=== PATIENT | male | born 1950 | race Two or more races ===

== ENCOUNTER 2016-10-09 18:29 | Inpatient (IN) | payer MEDICAID ==
[~2016-10-09] VITALS: Ht 182.9 cm; Wt 70.3 kg
[2016-10-09 18:27] VITALS: BP 98/62
[~2016-10-09 18:29] MED LIST: NKM
[2016-10-09] MEDS ORDERED: Morphine Sulfate 4mg/ml Inj IVP ONE ×2 (18:30→21:15)
[2016-10-09 18:51] LABS: BASOPHILS % (AUTO) 0.9 % (0.0-2.0); EOSINOPHILS % (AUTO) 0.6 % (0.0-3.0); LYMPHOCYTES % (AUTO) 30.6 % (20.0-45.0); MEAN CORPUSCULAR HEMOGLOBIN 26.5 PG (27.0-31.0); MEAN CORPUSCULAR HGB CONC 33.3 G/DL (32.0-36.0); MEAN CORPUSCULAR VOLUME 80 FL (80-99); MEAN PLATELET VOLUME 4.5 FL (6.5-10.1); MONOCYTES % (AUTO) 6.5 % (1.0-10.0); NEUTROPHILS % (AUTO) 61.3 % (45.0-75.0); PLATELET COUNT 412 K/UL (150-450); RED BLOOD COUNT 5.61 M/UL (4.70-6.10); RED CELL DISTRIBUTION WIDTH 12.9 % (11.6-14.8)
[2016-10-09 19:05] LABS: TROPONIN I < 0.30 ng/mL (<=0.30)
[2016-10-09 19:06] LABS: ALANINE AMINOTRANSFERASE 10 U/L (3-41); ALBUMIN/GLOBULIN RATIO 1.2 (1.0-2.7); ANION GAP 21 (5-15); ASPARTATE AMINO TRANSFERASE 17 U/L (5-40); CALCIUM 8.7 mg/dL (8.6-10.2); CARBON DIOXIDE 21 mEQ/L (20-30); CHLORIDE 85 mEQ/L (98-107); CREATININE 0.8 mg/dL (0.7-1.2); GLOMERULAR FILTRATION RATE > 60 mL/min (>60); HEMOLYSIS 1; LIPASE 80 U/L (< 60); SODIUM 127 mEQ/L (135-145); TOTAL PROTEIN 6.9 g/dL (6.6-8.7)
[2016-10-09 19:30] VITALS: BP 121/74
[2016-10-09] MEDS ORDERED: ZANTAC150 MG ORAL (20:10)
[2016-10-09 20:30] VITALS: BP 121/80
[2016-10-09 21:30] VITALS: BP 137/85
--- NOTE | 2016-10-09 21:31 | General Progress Note ---
Progress Note Progress Note Chart reviewed, pt examined, consult dictated # [id number]. Impression: acute abdomen with perforated viscus. Plan: to OR for an exploratory laparotomy for repair of perforated viscus, possible colostomy. Regan Bhatia MD Oct 09, 2016 21:31
--- NOTE | 2016-10-09 21:47 | Emergency Room Report ---
History of Present Illness General Chief Complaint: Abdominal Pain Source: EMS Present Illness HPI 66-year-old male presents to ED for evaluation. Per EMS patient has been having abdominal pain and vomiting x4 days. Patient states pain is sharp, 10 out of 10, epigastric, nonradiating. No aggravating or relieving factors. Denies fevers or chills. Denies chest pain or shortness of breath. Denies diarrhea. Denies any other associated symptoms Allergies: Coded Allergies: No Known Allergies (Unverified , 10/09/16) Patient History Past Medical History: none Past Surgical History: none Pertinent Family History: none Social History: Denies: alcohol use, drug use, smoking Immunizations: UTD Reviewed Nursing Documentation: PMH: Agreed, PSxH: Agreed Review of Systems All Other Systems: negative except mentioned in HPI Physical Exam Vital Signs Date Time Temp Pulse Resp B/P Pulse Ox O2 Delivery O2 Flow Rate FiO2 10/09/16 18:13 97.2 91 16 98/62 97 Room Air Sp02 EP Interpretation: reviewed, normal General Appearance: alert, GCS 15, non-toxic, moderate distress Head: normocephalic, atraumatic Eyes: bilateral eye PERRL, bilateral eye normal inspection ENT: hearing grossly normal, normal pharynx, no angioedema, normal voice Neck: full range of motion, supple/symm/no masses Respiratory: chest non-tender, lungs clear, normal breath sounds, speaking full sentences Cardiovascular #1: regular rate, rhythm, no edema Cardiovascular #2: 2+ carotid (R), 2+ carotid (L), 2+ radial (R), 2+ radial (L) , 2+ dorsalis pedis (R), 2+ dorsalis pedis (L) Gastrointestinal: normal bowel sounds, soft, non-distended, no guarding, rebound, tenderness Rectal: deferred Genitourinary: normal inspection, no CVA tenderness Musculoskeletal: back normal, gait/station normal, normal range of motion, non- tender Neurologic: alert, oriented x3, responsive, motor strength/tone normal, sensory intact, speech normal Psychiatric: judgement/insight normal, memory normal, mood/affect normal, no suicidal/homicidal ideation Reflexes: 3+ bicep (R), 3+ bicep (L), 3+ tricep (R), 3+ tricep (L), 3+ knee (R) , 3+ knee (L) Skin: normal color, no rash, warm/dry, well hydrated Lymphatic: no adenopathy Procedures Critical Care Time Critical Care Time i. I feel this is a highly complex case requiring extensive working including EKG/Rhythm strip, Xray/CT/US, Blood/urine lab work, repeat exams while in ED, and administration of strong opiates/narcotics for pain control, admission to hospital or close patient follow up. Total time: 30 min bedside evaluation and treatment excludes procedures (EKG). Reason for critical care: Perforated viscus, intractable pain Possible complications: hypotension, hypertension, MN, shock, arrhythmias, metabolic acidosis, end organ damage, respiratory failure. Interventions: Labs, IV fluids, pain medications. CT. Antibiotics. Surgery consult Course: Patient brought in for abdominal pain with vomiting x4 days. Leukocytosis noted. Potassium 3.0. CT shows perforated viscus. Patient made n.p.o. Antibiotics given. Surgery will take to OR Consultations: nursing staff, EMS, family Performed by: Dr Cordoba Tolerated well condition = serious j. because of unstable vital signs this patient had a condition that could potentially threaten life or limb. I feel this is a critical patient who required my full attention while patient was considered critical. Total Critical Care Time excluding procedures was greater than 35 minutes Medical Decision Making Diagnostic Impression: Primary Impression: Perforated abdominal viscus ER Course Hospital Course 66-year-old male presents to ED with abdominal pain and vomiting x4 days Differential diagnoses include: BPH, cystitis, pyelonephritis, kidney stone Clinical course Patient placed on stretcher. outside medical sales representative. After initial history and physical I ordered labs, IV fluids, UA, pain medication and CT scan Labs - noted leukocytosis, Hb/Hct stable. Na 127, K 3.0. CT abdomen and pelvis - free air upper abdomen consistent with perforated viscus patient made n.p.o. Given IV fluids. Given antibiotics. Given potassium per IV Dr Bhatia consulted will take patient to OR. Case discussed with Dr. Grullon and he agreed to accept the patient to his service for further care and support I feel this is a highly complex case requiring extensive working including EKG/ Rhythm strip, Xray/CT/US, Blood/urine lab work, repeat exams while in ED, and administration of strong opiates/narcotics for pain control, admission to hospital or close patient follow up. Diagnosis - perforated abdominal viscus Patient taken to OR in serious condition Labs Test 10/09/16 18:30 White Blood Count 17.0 K/UL (4.8-10.8) Red Blood Count 5.61 M/UL (4.70-6.10) Hemoglobin 14.8 G/DL (14.2-18.0) Hematocrit 44.6 % (42.0-52.0) Mean Corpuscular Volume 80 FL (80-99) Mean Corpuscular Hemoglobin 26.5 PG (27.0-31.0) Mean Corpuscular Hemoglobin Concent 33.3 G/DL (32.0-36.0) Red Cell Distribution Width 12.9 % (11.6-14.8) Platelet Count 412 K/UL (150-450) Mean Platelet Volume 4.5 FL (6.5-10.1) Neutrophils (%) (Auto) 61.3 % (45.0-75.0) Lymphocytes (%) (Auto) 30.6 % (20.0-45.0) Monocytes (%) (Auto) 6.5 % (1.0-10.0) Eosinophils (%) (Auto) 0.6 % (0.0-3.0) Basophils (%) (Auto) 0.9 % (0.0-2.0) Sodium Level 127 mEQ/L (135-145) Potassium Level 3.0 mEQ/L (3.4-4.9) Chloride Level 85 mEQ/L (98-107) Carbon Dioxide Level 21 mEQ/L (20-30) Anion Gap 21 (5-15) Blood Urea Nitrogen 11 mg/dL (7-23) Creatinine 0.8 mg/dL (0.7-1.2) Estimat Glomerular Filtration Rate > 60 mL/min (>60) Glucose Level 167 mg/dL (74-106) Calcium Level 8.7 mg/dL (8.6-10.2) Total Bilirubin 0.4 mg/dL (0.0-1.2) Aspartate Amino Transf (AST/SGOT) 17 U/L (5-40) Alanine Aminotransferase (ALT/SGPT) 10 U/L (3-41) Alkaline Phosphatase 48 U/L (40-129) Total Creatine Kinase 196 U/L (38-174) Creatine Kinase MB 6.0 ng/mL (< 6.7) Creatine Kinase MB Relative Index 3.0 Troponin I < 0.30 ng/mL (<=0.30) Total Protein 6.9 g/dL (6.6-8.7) Albumin 3.8 g/dL (3.5-5.2) Globulin 3.1 g/dL Albumin/Globulin Ratio 1.2 (1.0-2.7) Lipase 80 U/L (< 60) EKG Diagnostic Results Rate: normal Rhythm: NSR ST Segments: no acute changes ASA given to the pt in ED: No Rhythm Strip Diag. Results EP Interpretation: yes Rhythm: NSR, no PVC's, no ectopy CT/MRI/US Diagnostic Results CT/MRI/US Diagnostic Results : Imaging Test Ordered: CT abdomen/pelvis Impression Free air and upper abdomen consistent with perforated viscus. Likely peptic ulcer disease. Dilated loops of bowel likely ileus Last Vital Signs Date Time Temp Pulse Resp B/P Pulse Ox O2 Delivery O2 Flow Rate FiO2 10/09/16 19:57 97.1 10/09/16 19:30 96 18 121/74 95 Room Air Status: improved Disposition: ADMITTED INPATIENT Condition: Serious Referrals: [facility],REFERRING (PCP) CESAR CORDOBA M.D. Oct 09, 2016 21:47
[2016-10-09] MEDS ORDERED: LR 1000ml 1,000 ML IVLG SCH (22:32)
--- NOTE | 2016-10-09 22:32 | Anethesia Preoperative Eval ---
Anesthesia Pre-op PMH/ROS General Date of Evaluation: Oct 09, 2016 Time of Evaluation: 23:31 Anesthesiologist: Kaushik ASA Score: ASA 3 - Emergency Mallampati Score Class I : Soft palate, uvula, fauces, pillars visible Class II: Soft palate, uvula, fauces visible Class III: Soft palate, base of uvula visible Class IV: Only hard plate visible Mallampati Classification: Class II Surgeon: Sriram Diagnosis: Perforated Viscus Surgical Procedure: Exploratory Laparotomy Anesthesia History: none Family History: no anesthesia problems Allergies: Coded Allergies: No Known Allergies (Unverified , 10/09/16) Medications: see eMAR Past Medical History Cardiovascular: Reports: HTN Gastrointestinal/Genitourinary: Reports: GERD, other - Perforated Viscus Anesthesia Pre-op Phys. Exam Physician Exam Last Vital Signs Date Time Temp Pulse Resp B/P Pulse Ox O2 Delivery O2 Flow Rate FiO2 10/09/16 21:44 97.1 10/09/16 21:30 71 21 137/85 98 Nasal Cannula 1.0 Constitutional: NAD Neurologic: CN 2-12 intact Cardiovascular: RRR Respiratory: CTA Gastrointestinal: S/NT/ND Airway Exam Mallampati Score: Class II MO: full ROM: limited Teeth: intact Anesthesia Pre-op A/P Labs Hematology Test 10/09/16 18:30 White Blood Count 17.0 K/UL (4.8-10.8) H Red Blood Count 5.61 M/UL (4.70-6.10) Hemoglobin 14.8 G/DL (14.2-18.0) Hematocrit 44.6 % (42.0-52.0) Mean Corpuscular Volume 80 FL (80-99) Mean Corpuscular Hemoglobin 26.5 PG (27.0-31.0) L Mean Corpuscular Hemoglobin Concent 33.3 G/DL (32.0-36.0) Red Cell Distribution Width 12.9 % (11.6-14.8) Platelet Count 412 K/UL (150-450) Mean Platelet Volume 4.5 FL (6.5-10.1) L Neutrophils (%) (Auto) 61.3 % (45.0-75.0) Lymphocytes (%) (Auto) 30.6 % (20.0-45.0) Monocytes (%) (Auto) 6.5 % (1.0-10.0) Eosinophils (%) (Auto) 0.6 % (0.0-3.0) Basophils (%) (Auto) 0.9 % (0.0-2.0) Chemistry Test 10/09/16 18:30 Sodium Level 127 mEQ/L (135-145) L Potassium Level 3.0 mEQ/L (3.4-4.9) L Chloride Level 85 mEQ/L (98-107) L Carbon Dioxide Level 21 mEQ/L (20-30) Anion Gap 21 (5-15) H Blood Urea Nitrogen 11 mg/dL (7-23) Creatinine 0.8 mg/dL (0.7-1.2) Estimat Glomerular Filtration Rate > 60 mL/min (>60) Glucose Level 167 mg/dL (74-106) H Calcium Level 8.7 mg/dL (8.6-10.2) Total Bilirubin 0.4 mg/dL (0.0-1.2) Aspartate Amino Transf (AST/SGOT) 17 U/L (5-40) Alanine Aminotransferase (ALT/SGPT) 10 U/L (3-41) Alkaline Phosphatase 48 U/L (40-129) Total Creatine Kinase 196 U/L (38-174) H Creatine Kinase MB 6.0 ng/mL (< 6.7) Creatine Kinase MB Relative Index 3.0 Troponin I < 0.30 ng/mL (<=0.30) Total Protein 6.9 g/dL (6.6-8.7) Albumin 3.8 g/dL (3.5-5.2) Globulin 3.1 g/dL Albumin/Globulin Ratio 1.2 (1.0-2.7) Lipase 80 U/L (< 60) H Risk Assessment & Plan Assessment: ASA 3E Plan: GA, BIS, Glidescope Status Change Before Surgery: No Pre-Antibiotics Dru Grams Ancef, 500 mg Flagyl IV Given Within 1 Hr of Incision: Yes Time Given: 23:41 Javier Faulkner MD Oct 09, 2016 22:32
--- NOTE | 2016-10-09 22:40 | Pre-Procedure Note/Attestation ---
Pre-Procedure Note/Attestation Complete Prior to Procedure Planned Procedure: not applicable Procedure Narrative: exploratory laparotomy for repair of perforated viscus, possible colostomy Indications for Procedure Pre-Operative Diagnosis: perforated viscus Attestation I attest that I discussed the nature of the procedure; its benefits; risks and complications; and alternatives (and the risks and benefits of such alternatives ), prior to the procedure, with the patient (or the patient's legal client account representative). I attest that, if there was a reasonable possibility of needing a blood transfusion, the patient (or the patient's legal client account representative) was given the [facility] standardized written summary, pursuant to the Chandu Hiram Blood Safety Act ([place] Health and Safety Code # 1645, as amended). I attest that I re-evaluated the patient just prior to the surgery and that there has been no change in the patient's H&P, except as documented below: none Regan Bhatia MD Oct 09, 2016 22:40
[2016-10-09] MEDS ORDERED: Meperidine 25mg/ml Inj IV PRN (22:45)
[2016-10-09] MEDS ORDERED: Norco 7.5mg/325mg tab ORAL PRN (22:45)
[2016-10-09] MEDS ORDERED: Metoclopramide 10mg/2ml Inj IVP PRN (22:45)
[2016-10-09] MEDS ORDERED: Ketorolac 30mg Inj IV PRN (22:45)
[2016-10-09] MEDS ORDERED: Midazolam 2mg/2ml Inj IVP PRN (22:45)
[2016-10-09] MEDS ORDERED: Atropine Inj 1mg/10ml Syr IV PRN (22:45)
[2016-10-09] MEDS ORDERED: DiphenhydrAMINE 50mg/ml Inj IVP PRN (22:45)
[2016-10-09] MEDS ORDERED: Norco 5mg/325mg tab ORAL PRN (22:45)
[2016-10-09] MEDS ORDERED: Labetalol 5mg/ml 20ml vial IV PRN (22:45)
[2016-10-09] MEDS ORDERED: Hydromorphone 0.5mg/0.5ml inj IVP PRN (22:45)
[2016-10-09] MEDS ORDERED: Oxycodone/Acetaminophen 5-325 ORAL PRN (22:45)
[2016-10-09] MEDS ORDERED: Ketorolac 60mg Inj IV PRN (22:45)
[2016-10-09] MEDS ORDERED: LORazepam Inj 2mg/ml 1ml IV PRN (22:45)
[2016-10-09] MEDS ORDERED: fentaNYL 100 mcg/2 mL IV PRN (22:45)
[2016-10-09] MEDS ORDERED: NS Irrig 1000ml ONE (23:30)
[2016-10-09] MEDS ORDERED: Sterile Water Irrig 1000ml IRRIG ONE (23:30)
[2016-10-09] MEDS ORDERED: Propofol 10mg/ml 20ml IV ONE (23:30)
[2016-10-09] MEDS ORDERED: Neostigmine 1mg/ml 10ml Inj ONE (23:30)
[2016-10-09] MEDS ORDERED: Zemuron 50mg/5ml Inj IV ONE (23:30)
[2016-10-09] MEDS ORDERED: Midazolam 2mg/2ml Inj ONE (23:30)
[2016-10-09] MEDS ORDERED: Glycopyrrolate 0.2mg/ml 1ml Vial ONE (23:30)
[2016-10-09] MEDS ORDERED: fentaNYL 100 mcg/2 mL IV ONE (23:30)
[2016-10-09] MEDS ORDERED: Lidocaine 1% MPF 10mg/ml 5ml ONE (23:30)
[2016-10-09] MEDS ORDERED: LR 1000ml ONE (23:30)
[2016-10-10] VITALS (12 sets, daily range): BP systolic 115–141; BP diastolic 71–87
[2016-10-10] MEDS ORDERED: NS Irrig 1000ml IRRIG ONE (00:01)
--- NOTE | 2016-10-10 00:19 | Immediate Post-Op Evaluation ---
Immediate Post-Op Evalulation Immediate Post-Op Evalulation Procedure: Laparotomy, Repair Perforated Stomach Date of Evaluation: Oct 10, 2016 Time of Evaluation: 00:49 IV Fluids: 500 LR Blood Products: 1000 Albumin Estimated Blood Loss: 50 Urinary Output: 0 Blood Pressure Systolic: 115 Blood Pressure Diastolic: 76 Pulse Rate: 65 Respiratory Rate: 16 O2 Sat by Pulse Oximetry: 99 Temperature (Fahrenheit): 97.7 Pain Score (1-10): 2 Nausea: No Vomiting: No Complications 0 Patient Status: awake, reacts, patent, extubated, none Hydration Status: adequate Dru Grams Ancef, 500 mg Flagyl IV Given Within 1 Hr of Incision: Yes Time Given: 23:41 Javier Faulkner MD Oct 10, 2016 00:19
--- NOTE | 2016-10-10 00:47 | History and Physical Report ---
DATE OF ADMISSION: 10/09/2016 REASON FOR ADMISSION: Abdominal pain, pneumoperitoneum. HISTORY OF PRESENT ILLNESS: This is a 66-year-old white male. He has had problems with gastritis and/or peptic ulcer disease for approximately four years. The patient was having problems with vomiting for the past four days. He developed the sudden onset of sharp generalized abdominal pain approximately 5:30 this evening. He denied any problems with hematemesis or rectal bleeding. He did notice some chills, but had no documented fever. PAST MEDICAL HISTORY: None. PREVIOUS SURGERIES: None. ALLERGIES: None known. MEDICATIONS: Include Zantac 150 mg daily. He was previously on Pepcid. SOCIAL HISTORY: Tobacco one pack per day since the age of 62. Alcohol, none. Occupation, the patient is currently unemployed. He was a salesman previously. FAMILY HISTORY: Positive for hypertension. REVIEW OF SYSTEMS: Essentially negative. There is no history of angina or asthma. He reports some problems with nocturia x1. PHYSICAL EXAMINATION: GENERAL: Reveals a thin white male, complaining of abdominal pain. VITAL SIGNS: Temperature 97.1, blood pressure 121/74, pulse 96, and respirations 18. HEENT: Normocephalic. Pupils are equal and reactive to light. There was no scleral icterus. NECK: Supple without adenopathy. LUNGS: Clear. HEART: Showed a regular rhythm without murmurs or gallops. ABDOMEN: Abdomen was flat. There is diffuse tenderness throughout with rigidity, consistent with a board-like abdomen. RECTAL: Rectal exam showed normal sphincter tone. There were no perirectal masses. The prostate is slightly enlarged. LABORATORY AND DIAGNOSTIC DATA: Laboratory Studies: CBC showed a white blood count of 17,000; hemoglobin 14.8 g%, hematocrit 44.6%, and platelet count 412,000. Clinical chemistry showed a sodium of 127, potassium 3.0, chloride 85, bicarbonate 21, BUN 11, creatinine 0.8, and glucose 167. Total bilirubin 0.4, SGOT 10, SGPT 17, and alkaline phosphatase normal at 48. Lipase was elevated to 80. A CT scan of the abdomen and pelvis revealed extensive free air mostly in the upper abdomen. There was no obvious focal point of the perforation. IMPRESSION: Acute abdomen, perforated viscus. PLAN: We will begin an infusion with intravenous potassium to replenish his hypokalemia. We will check coags in preparation for a laparotomy this evening. The patient and significant other were explained the nature of the problem and told that if this is a perforated ulcer, he will need to undergo a repair with a patch. He was also told that if the problem represents a colonic perforation, he may require a partial colectomy and temporary colostomy. Regan Bhatia M.D. DR: ALDAIR JOB#: [id number] CC: RACHEL
[2016-10-10] MEDS ORDERED: Hydromorphone 0.5mg/0.5ml inj IVP PRN (01:00)
--- NOTE | 2016-10-10 01:06 | Brief Operative Note ---
Immediate Post Operative Note Operative Note Pre-op Diagnosis: perforated viscus Procedure: exploratory laparotomy, Cruz closure of perforated pyloric channel ulcer Post-op Diagnosis: perforated pyloric ulcer Surgeon: Angelina Bhatia MD Channel Rebuilder: LADARIUS Bedolla MD Anesthesiologist: Sonny Faulkner MD Anesthesia: general Specimen: none Complications: none Condition: stable Estimated Blood Loss: minimal Drains: none Packing: none Implant(s) used?: No Regan Bhatia MD Oct 10, 2016 01:06
[2016-10-10] MEDS ORDERED: Ketorolac 60mg Inj ONE (01:15)
[2016-10-10] MEDS ORDERED: Pantoprazole 80 MG in NS 250 ML IV ONE (02:00)
[2016-10-10] MEDS ORDERED: Ketorolac 30mg Inj IV ONE ×2 (02:00)
[2016-10-10] MEDS ORDERED: Pantoprazole Inj ONE (02:24)
[2016-10-10] MEDS: HYDROmorphone 1mg/ml Carpuject IVP PRN (02:54)
[2016-10-10] MEDS: D5 1/2NS w/KCl 20mEq 1,000 ML IV SCH ×4 (03:10→23:00)
--- NOTE | 2016-10-10 03:28 | Operative Note - Dictated ---
DATE OF OPERATION: 10/09/2016 PREOPERATIVE DIAGNOSIS: Perforated viscus. POSTOPERATIVE DIAGNOSES: 1. Perforated viscus. 2. Perforated pyloric channel ulcer. PROCEDURE: 1. Exploratory laparotomy. 2. Cruz closure of perforated ulcer. SURGEON: Regan Bhatia M.D. PRODUCTION EXPERT: Thomas Bedolla M.D. ANESTHESIA: General endotracheal, Dr. Javier Faulkner. INDICATIONS FOR SURGERY: This is a 66-year-old white male with known history of gastritis and peptic ulcer disease, presented to the hospital with the sudden onset of upper abdominal pain approximately six to seven hours prior to surgery. The patient was found to have a leukocytosis to 17,000. A CT scan of the abdomen revealed free air. Exam reveals a rigid abdomen. He was advised to undergo an exploratory laparotomy for repair of his perforated viscus. He was also informed that if the perforation was in the colon, he may require a partial colectomy and colostomy. OPERATIVE FINDINGS: Exploration of the abdominal cavity revealed some murky fluid. Cultures were taken. The patient was found to have a 5 mm perforated ulcer on the anterior aspect of the pyloric channel. The proximal stomach appeared normal as did the duodenum. There were no abnormalities noted in the gallbladder or liver. The descending and sigmoid colon had extensive diverticulosis. There were no masses to suggest a colon tumor or acute diverticulitis. OPERATIVE TECHNIQUE: With the patient in the supine position and after induction of adequate general endotracheal anesthesia, the abdomen was prepped and draped in the sterile fashion. A time-out was called. A midline incision was made in the epigastric region. The subcutaneous tissue was divided by sharp dissection with a scalpel. Several bleeding points were cauterized. The rectus fascia was incised at the midline. The peritoneum was elevated and incised entering the abdominal cavity. The falciform ligament was divided between two clamps. The adjacent vessels to the round ligament were ligated with 3-0 silk. Cultures were taken of the murky fluid in the upper abdomen. Inspection of the area revealed the site of perforation. The abdomen was copiously irrigated with normal saline. A Cruz closure was performed by placing interrupted 2-0 silk sutures in transverse fashion, proximal and distal perforation. A portion of the omentum was brought underneath the sutures and over the area of perforation. The sutures were carefully tightened completing the repair. The abdomen was further irrigated with normal saline. There was no evidence of hemorrhage. The rectus fascia was closed with a running #1 PDS suture. The subcutaneous tissue was irrigated. The skin was closed with stainless steel bijal. Sterile dressings were applied. The patient tolerated the procedure well and was returned to the recovery room in stable condition. The estimated blood loss was 20 mL. Regan Bhatia M.D. DR: ALDAIR JOB#: [id number] CC: RACHEL
[2016-10-10] MEDS ORDERED: metroNIDAZOLE 500mg 100 ML IVPB SCH (06:00)
[2016-10-10] MEDS ORDERED: ceFAZolin sod 2 GM in D5W 100 ML IV SCH ×2 (06:00→14:00)
[2016-10-10] MEDS: Heparin 5000 units/ml inj SUBQ SCH ×2 (08:46→21:19)
--- NOTE | 2016-10-10 09:47 | Diagnostic Imaging Report ---
Indication: Abdominal pain Technique: Continuous helical transaxial imaging of the abdomen and pelvis was obtained from the lung bases to the pubic symphysis during intravenous contrast administration. Coronal 2-D reformats were also obtained. Study obtained in a Siemens sensation [address] Total Dose length Product (DLP): [address] Dose Index Volume (CTDIvol): 14 mGy Comparison: None Findings: There is moderate degree of free intraperitoneal air and fluid demonstrated consistent with perforation of bowel or stomach. The source of the perforation is not known. Most of the air appears to be in the upper abdomen. Should consider perforated ulcer. Distended stomach and multiple loops of small bowel with wall enhancement noted. The right hemicolon also appears abnormal with some thickening of the wall. There is mesenteric stranding demonstrated. The findings could be on the basis of the perforation a with secondary inflammation and ileus. Arterial vascular consultations are noted. Liver attenuation is normal. Gallbladder, spleen, pancreas appear unremarkable. Renal cysts are noted within the right kidney. Unusual collection of contrast within one of the small bowel loops in the lower abdomen (image 64, series 3). Followup for this is suggested with a KUB. This is probably some segregated or flocculated barium or possibly bismuth. Few diverticula noted in the colon. The appendix is not seen. Impression: Free intraperitoneal air indicative of colonic or enteric perforation. Source of the perforation not identified but strongly consider perforated ulcer. Mesenteric soft tissue stranding and enhancement of the platt and mild dilatation of multiple small bowel loops and colon probably associated with the peritoneal irritation and inflammation from perforation. Posterior basilar atelectasis Small hiatal hernia Right renal cysts Atherosclerotic vascular disease Mild diverticulosis of the colon Critical value communication. Findings were discussed via telephone with Dr. Cordoba at 20:00, 10/09/[address] scanner at [facility] is accredited by the [employer] and the scans are performed using protocols designed to limit radiation exposure to as low as reasonably achievable to attain images of sufficient resolution adequate for diagnostic evaluation.
--- NOTE | 2016-10-10 10:58 | General Surgery Progress Note ---
General Surgery-Progress Note Subjective Day of Surgery: post op day #1 Procedure Performed Exploratory laparotomy with Cruz Patch repair of perforated prepyloric ulcer. Symptoms: improved Additional Comments patient seen and examined at bedside. no acute events. doing well. pain improved. no n/v/f/c. ngt functional. states he feels much better today after surgery. no flatus or BM Objective Last 24 Hour Vital Signs Date Time Temp Pulse Resp B/P Pulse Ox O2 Delivery O2 Flow Rate FiO2 10/10/16 08:00 97.9 68 19 116/75 99 Nasal Cannula 2.0 10/10/16 04:00 97.6 66 18 138/85 98 Nasal Cannula 2.0 10/10/16 01:30 98.0 60 14 141/87 98 Nasal Cannula 3.0 10/10/16 01:15 60 18 132/79 98 Nasal Cannula 3.0 10/10/16 01:00 60 17 120/81 98 Nasal Cannula 3.0 10/10/16 00:48 66 15 129/74 95 Nasal Cannula 3.0 10/10/16 00:43 61 15 121/80 99 Simple Mask 6.0 10/10/16 00:41 65 16 99 10/10/16 00:38 97.7 65 17 115/76 98 Simple Mask 6.0 10/09/16 22:55 97.1 71 21 137/85 98 Nasal Cannula 1.0 10/09/16 21:44 97.1 10/09/16 21:30 71 21 137/85 98 Nasal Cannula 1.0 10/09/16 20:30 89 15 121/80 95 Nasal Cannula 1.0 10/09/16 19:57 97.1 10/09/16 19:30 96 18 121/74 95 Room Air 10/09/16 18:27 16 98/62 97 Room Air 10/09/16 18:13 97.2 91 16 98/62 97 Room Air I&O Intake and Output 10/09/16 10/10/16 18:59 06:59 Intake Total 3200 ml Output Total 500 ml Balance 2700 ml Intake IV Total 3200 ml Output Urine Total 450 ml Estimated Blood Loss 50 ml Dressing: dry Wound: clean Drains: none Cardiovascular: RSR Respiratory: clear Abdomen: soft, non-tender, tenderness - incisional Laboratory Tests Test 10/09/16 18:30 White Blood Count 17.0 K/UL (4.8-10.8) H Red Blood Count 5.61 M/UL (4.70-6.10) Hemoglobin 14.8 G/DL (14.2-18.0) Hematocrit 44.6 % (42.0-52.0) Mean Corpuscular Volume 80 FL (80-99) Mean Corpuscular Hemoglobin 26.5 PG (27.0-31.0) L Mean Corpuscular Hemoglobin Concent 33.3 G/DL (32.0-36.0) Red Cell Distribution Width 12.9 % (11.6-14.8) Platelet Count 412 K/UL (150-450) Mean Platelet Volume 4.5 FL (6.5-10.1) L Neutrophils (%) (Auto) 61.3 % (45.0-75.0) Lymphocytes (%) (Auto) 30.6 % (20.0-45.0) Monocytes (%) (Auto) 6.5 % (1.0-10.0) Eosinophils (%) (Auto) 0.6 % (0.0-3.0) Basophils (%) (Auto) 0.9 % (0.0-2.0) Sodium Level 127 mEQ/L (135-145) L Potassium Level 3.0 mEQ/L (3.4-4.9) L Chloride Level 85 mEQ/L (98-107) L Carbon Dioxide Level 21 mEQ/L (20-30) Anion Gap 21 (5-15) H Blood Urea Nitrogen 11 mg/dL (7-23) Creatinine 0.8 mg/dL (0.7-1.2) Estimat Glomerular Filtration Rate > 60 mL/min (>60) Glucose Level 167 mg/dL (74-106) H Calcium Level 8.7 mg/dL (8.6-10.2) Total Bilirubin 0.4 mg/dL (0.0-1.2) Aspartate Amino Transf (AST/SGOT) 17 U/L (5-40) Alanine Aminotransferase (ALT/SGPT) 10 U/L (3-41) Alkaline Phosphatase 48 U/L (40-129) Total Creatine Kinase 196 U/L (38-174) H Creatine Kinase MB 6.0 ng/mL (< 6.7) Creatine Kinase MB Relative Index 3.0 Troponin I < 0.30 ng/mL (<=0.30) Total Protein 6.9 g/dL (6.6-8.7) Albumin 3.8 g/dL (3.5-5.2) Globulin 3.1 g/dL Albumin/Globulin Ratio 1.2 (1.0-2.7) Lipase 80 U/L (< 60) H Assessment Post-op Diagnosis 66 year old male POD #1 s/p Cruz patch of perforated prepyloric ulcer. Additional Comments Afebrile, HD stable, recovering well. Plan Problems: (1) Perforated chronic peptic ulcer Assessment & Plan: Continue current care and management NPO with IV fluids NG tube to low intermittent suction Continue IV Abx (perforated viscus with contamination) Protonix drip Heparin Ambulate and OOB Pending labs Robb to say in today to monitor urine output; likely d/c robb tomorrow Rx as written. Thomas Bedolla MD Oct 10, 2016 10:58
[2016-10-10] MEDS ORDERED: Milk of Magnesia 30ml Ud ORAL ONE (11:15)
[2016-10-10] MEDS ORDERED: Levofloxacin 500mg tab ORAL SCH (11:30)
[2016-10-10] MEDS: Pantoprazole Inj IVP SCH ×2 (11:53→21:20)
[2016-10-10 12:28] LABS: MEAN CORPUSCULAR HEMOGLOBIN 26.6 PG (27.0-31.0); MEAN CORPUSCULAR HGB CONC 33.4 G/DL (32.0-36.0); MEAN CORPUSCULAR VOLUME 80 FL (80-99); PLATELET COUNT 314 K/UL (150-450); RED BLOOD COUNT 4.75 M/UL (4.70-6.10)
[2016-10-10 12:36] LABS: ANION GAP 14 (5-15); CALCIUM 7.9 mg/dL (8.6-10.2); CARBON DIOXIDE 24 mEQ/L (20-30); CHLORIDE 93 mEQ/L (98-107); CREATININE 0.8 mg/dL (0.7-1.2); GLOMERULAR FILTRATION RATE > 60 mL/min (>60); HEMOLYSIS 8; POTASSIUM 4.2 mEQ/L (3.4-4.9); SODIUM 131 mEQ/L (135-145); WHITE BLOOD COUNT 24.6 K/UL (4.8-10.8)
[2016-10-10 13:02] LABS: BAND NEUTROPHILS % (MANUAL) 0 % (0-8); BASOPHILS % (MANUAL) 0 % (0-2); EOSINOPHILS % (MANUAL) 1 % (0-3); LYMPHOCYTES % (MANUAL) 5 % (20-45); NEUTROPHILS % (MANUAL) 92 % (45-75); PLATELET ESTIMATE ADEQUATE; PLATELET MORPHOLOGY NORMAL; TOTAL CELLS COUNTED 100
[2016-10-10] MEDS: Piperacillin/Tazobactam 3.375 GM in D5W 110 ML IVPB SCH ×2 (14:30→21:21)
--- NOTE | 2016-10-10 15:51 | Consultation ---
Consult Note Assessment/Plan DICT # [id number] TIFFANI THORPE M.D. Oct 10, 2016 15:51
[2016-10-10] MEDS ORDERED: D5W 110ml ONE (16:24)
--- NOTE | 2016-10-10 23:08 | Consultation ---
DATE OF CONSULTATION: 10/10/2016 CONSULTING PHYSICIAN: Kristian Carney M.D. ATTENDING PHYSICIAN: Regan Bhatia M.D. REFERRING PHYSICIAN: Please note this is in consultation in coverage for Dr. Bonifacio Grullon. HISTORY OF PRESENT ILLNESS: The patient is a 66-year-old male without any known past medical history, who presented to the ER with several days of sharp generalized abdominal pain and vomiting. He states that he has been having pain for many years, but it was worse over the past few days. He also had generalized feeling of not being well. No fever or chills. No headache or dizziness. No diarrhea or constipation. He had a bowel movement a day prior to this. No hematemesis, hemoptysis, melena, or bright red blood per rectum. No dysuria, urgency, hesitancy, or frequency. In the ER, he had leukocytosis and CT was done which revealed free air in the upper abdomen. The patient was taken to the OR for repair of perforated viscus. He is now postop day #1, status post exploratory laparotomy with Cruz patch repair of perforated pre-pyloric ulcer. PAST MEDICAL HISTORY: None. PAST SURGICAL HISTORY: Exploratory laparotomy for repair of a perforated pyloric ulcer on 10/10/2016. ALLERGIES: No known drug allergies. MEDICATIONS: Prior to admission, medications none. SOCIAL HISTORY: He smokes less than a pack per day. No drug or alcohol use. He is and has kids. FAMILY HISTORY: Noncontributory. REVIEW OF SYSTEMS: Negative other than history of present illness. PHYSICAL EXAMINATION: VITAL SIGNS: Temperature 98, pulse 60, blood pressure 141/87, respiratory rate 14, and saturating 98% on two liters. GENERAL: Well-developed and well-nourished male in no acute distress. Awake, alert, and oriented x3. HEENT: Normocephalic and atraumatic. Oropharynx is clear with moist mucous membranes. NECK: Supple without lymphadenopathy. No JVD. CHEST: Clear to auscultation bilaterally. HEART: Regular rate and rhythm. ABDOMEN: Soft. Diffusely tender around the wound. The wound is dressed. No bowel sounds. EXTREMITIES: No cyanosis, clubbing, or edema. ANCILLARY DATA: White count 17 at admission and 24.6 today, hemoglobin 14, and platelet count 412,000. Chemistry, sodium 131, potassium 4.2, chloride 92, bicarbonate 24, BUN 9, creatinine 0.8, glucose 132, and calcium 7.9. LFTs reviewed. CK 196. Troponin less than 0.03. Lipase 80. Total protein 6.9, albumin 2.8, globulin 3.1. Cultures from the OR are pending. Imaging, CT of abdomen and pelvis shows free intraperitoneal air indicative of colonic perforation, source of perforation not identified, mesenteric soft tissue stranding and enhancement of the platt, moderate aeration of multiple small bowel loops, posterior basilar atelectasis, small hiatal hernia, right renal cyst, atherosclerotic vascular disease, and mild diverticulosis of the colon. ASSESSMENT: The patient is a 66-year-old male presenting with acute abdomen. He is now postop day #1, status post repair of perforated viscus. PROBLEM LIST: 1. Acute abdomen, status post exploratory laparotomy with Cruz patch repair of perforated prepyloric ulcer. 2. Tobacco use. 3. Postoperative leukocytosis. TREATMENT PLAN: 1. Postoperative care. 2. Pain control, supportive care. 3. IV fluid hydration. 4. Broad-spectrum antibiotic therapy with Zosyn. 5. Follow up cultures. 6. Incentive spirometer. 7. Advance diet when okay with surgery. 8. Follow up surgery recommendations. 9. DVT prophylaxis, heparin subcutaneous. 10. Mobilize as tolerated and out of bed as tolerated. 11. Continue IV PPI. 12. NG tube per surgery. 13. Drain per surgery. 14. Keep Hickman in overnight. 15. We will likely discharge tomorrow. Kristian Carney M.D. DR: Laura JOB#: [id number] CC:
[2016-10-11] VITALS: BP 121/80
[2016-10-11 04:00] VITALS: BP 135/84
[2016-10-11] MEDS: Piperacillin/Tazobactam 3.375 GM in D5W 110 ML IVPB SCH ×3 (04:56→22:13)
[2016-10-11] MEDS: D5 1/2NS w/KCl 20mEq 1,000 ML IV SCH ×3 (05:45→21:10)
[2016-10-11 08:00] VITALS: BP 138/85
[2016-10-11] MEDS: Pantoprazole Inj IVP SCH ×2 (08:14→21:11)
[2016-10-11] MEDS: Heparin 5000 units/ml inj SUBQ SCH ×2 (08:16→21:20)
--- NOTE | 2016-10-11 08:31 | General Surgery Progress Note ---
General Surgery-Progress Note Subjective Day of Surgery: po day 1 Reason for Consult s/p ex lap Cruz patch repair of perforated pyloric channel ulcer Symptoms: pain same Additional Comments no flatus or bm Objective Last 24 Hour Vital Signs Date Time Temp Pulse Resp B/P Pulse Ox O2 Delivery O2 Flow Rate FiO2 10/11/16 04:00 98.2 76 19 135/84 97 Nasal Cannula 2.0 10/11/16 00:00 98.4 78 19 121/80 95 Nasal Cannula 2.0 10/10/16 20:01 97.0 70 14 132/74 97 Nasal Cannula 2.0 10/10/16 16:00 96.8 72 15 120/71 94 Nasal Cannula 2.0 10/10/16 12:00 97.5 70 20 119/76 98 Nasal Cannula 2.0 I&O Intake and Output 10/10/16 10/11/16 19:00 07:00 Intake Total 900 ml 900 ml Output Total 980 ml 920 ml Balance -80 ml -20 ml Intake Oral 0 ml IV Total 900 ml 900 ml Output Urine Total 700 ml 750 ml Other 280 ml 170 ml Dressing: dry Wound: clean Drains: none Cardiovascular: RSR Respiratory: clear Abdomen: tenderness, absent bowel sounds Extremities: no edema, no tenderness, no cyanosis Laboratory Tests Test 10/10/16 11:20 White Blood Count 24.6 K/UL (4.8-10.8) *H Red Blood Count 4.75 M/UL (4.70-6.10) Hemoglobin 12.6 G/DL (14.2-18.0) L Hematocrit 37.9 % (42.0-52.0) L Mean Corpuscular Volume 80 FL (80-99) Mean Corpuscular Hemoglobin 26.6 PG (27.0-31.0) L Mean Corpuscular Hemoglobin Concent 33.4 G/DL (32.0-36.0) Red Cell Distribution Width 13.0 % (11.6-14.8) Platelet Count 314 K/UL (150-450) Mean Platelet Volume 5.0 FL (6.5-10.1) L Neutrophils (%) (Auto) % (45.0-75.0) Lymphocytes (%) (Auto) % (20.0-45.0) Monocytes (%) (Auto) % (1.0-10.0) Eosinophils (%) (Auto) % (0.0-3.0) Basophils (%) (Auto) % (0.0-2.0) Differential Total Cells Counted 100 Neutrophils % (Manual) 92 % (45-75) H Lymphocytes % (Manual) 5 % (20-45) L Monocytes % (Manual) 2 % (1-10) Eosinophils % (Manual) 1 % (0-3) Basophils % (Manual) 0 % (0-2) Band Neutrophils 0 % (0-8) Platelet Estimate Adequate Platelet Morphology Normal Red Blood Cell Morphology Normal Sodium Level 131 mEQ/L (135-145) L Potassium Level 4.2 mEQ/L (3.4-4.9) Chloride Level 93 mEQ/L (98-107) L Carbon Dioxide Level 24 mEQ/L (20-30) Anion Gap 14 (5-15) Blood Urea Nitrogen 9 mg/dL (7-23) Creatinine 0.8 mg/dL (0.7-1.2) Estimat Glomerular Filtration Rate > 60 mL/min (>60) Glucose Level 132 mg/dL (74-106) H Calcium Level 7.9 mg/dL (8.6-10.2) L Assessment Post-op Diagnosis stable post op course.\ long discussion with pt re pathophysiology, surgical findings. post-op care. Additional Comments will jamshid ashley. recheck labs am SOTERO MEDINA Oct 11, 2016 08:31
[2016-10-11 09:43] LABS: MEAN CORPUSCULAR HEMOGLOBIN 26.6 PG (27.0-31.0); MEAN CORPUSCULAR HGB CONC 33.5 G/DL (32.0-36.0); MEAN CORPUSCULAR VOLUME 79 FL (80-99); MEAN PLATELET VOLUME 5.3 FL (6.5-10.1); PLATELET COUNT 288 K/UL (150-450); RED BLOOD COUNT 4.52 M/UL (4.70-6.10); RED CELL DISTRIBUTION WIDTH 12.9 % (11.6-14.8); WHITE BLOOD COUNT 20.7 K/UL (4.8-10.8)
[2016-10-11 09:55] LABS: ANION GAP 14 (5-15); CALCIUM 7.9 mg/dL (8.6-10.2); CARBON DIOXIDE 22 mEQ/L (20-30); CHLORIDE 91 mEQ/L (98-107); CREATININE 0.6 mg/dL (0.7-1.2); GLOMERULAR FILTRATION RATE > 60 mL/min (>60); HEMOLYSIS 1; POTASSIUM 3.8 mEQ/L (3.4-4.9); SODIUM 127 mEQ/L (135-145)
[2016-10-11 10:25] LABS: BAND NEUTROPHILS % (MANUAL) 0 % (0-8); BASOPHILS % (MANUAL) 0 % (0-2); EOSINOPHILS % (MANUAL) 0 % (0-3); LYMPHOCYTES % (MANUAL) 3 % (20-45); MICROCYTES 1+; NEUTROPHILS % (MANUAL) 94 % (45-75); PLATELET ESTIMATE ADEQUATE; PLATELET MORPHOLOGY NORMAL; TOTAL CELLS COUNTED 100
[2016-10-11 12:00] VITALS: BP 130/68
[2016-10-11 16:00] VITALS: BP 132/86
--- NOTE | 2016-10-11 18:22 | Pulmonology Progress Note ---
Assessment/Plan Assessment/Plan 1. Acute abdomen, status post exploratory laparotomy with Cruz patch repair of perforated prepyloric ulcer. 2. Tobacco use. 3. Postoperative leukocytosis. TREATMENT PLAN: 1. Postoperative care. 2. Pain control, supportive care. 3. IV fluid hydration. 4. Broad-spectrum antibiotic therapy with Zosyn. 5. Follow up cultures. 6. Incentive spirometer. 7. Advance diet when okay with surgery. 8. Follow up surgery recommendations. 9. DVT prophylaxis, heparin subcutaneous. 10. Mobilize as tolerated and out of bed as tolerated. Subjective Interval Events: Improved; seen by surgery earlier today Constitutional: Reports: no symptoms HEENT: Repors: no symptoms Respiratory: Reports: no symptoms Cardiovascular: Reports: no symptoms Gastrointestinal/Abdominal: Reports: nausea Genitourinary: Reports: no symptoms Neurologic: Reports: no symptoms Allergies: Coded Allergies: No Known Allergies (Unverified , 10/09/16) Objective Last 24 Hour Vital Signs Date Time Temp Pulse Resp B/P Pulse Ox O2 Delivery O2 Flow Rate FiO2 10/11/16 16:00 98.2 81 20 132/86 94 Nasal Cannula 2.0 10/11/16 12:00 98.2 89 20 130/68 94 Nasal Cannula 2.0 10/11/16 08:43 98.2 10/11/16 08:00 98.2 84 20 138/85 95 Room Air 10/11/16 04:00 98.2 76 19 135/84 97 Nasal Cannula 2.0 10/11/16 00:00 98.4 78 19 121/80 95 Nasal Cannula 2.0 10/10/16 20:01 97.0 70 14 132/74 97 Nasal Cannula 2.0 Intake and Output 10/10/16 10/11/16 19:00 07:00 Intake Total 900 ml 1050 ml Output Total 980 ml 920 ml Balance -80 ml 130 ml Intake Oral 0 ml IV Total 900 ml 1050 ml Output Urine Total 700 ml 750 ml Other 280 ml 170 ml General Appearance: WD/WN HEENT: normocephalic Respiratory/Chest: chest wall non-tender, lungs clear Cardiovascular: normal peripheral pulses, normal rate Abdomen: hypoactive bowel sounds Extremities: no cyanosis Microbiology Date/Time Source Procedure Growth Status 10/10/16 00:40 Abdomen Gram Stain - Final Resulted 10/10/16 00:40 Abdomen Aerobic Culture - Preliminary NO GROWTH AFTER 24 HOURS Resulted 10/10/16 00:40 Abdomen Anaerobic Culture Pending Resulted Laboratory Tests 10/11/16 09:30: White Blood Count 20.7H, Red Blood Count 4.52L, Hemoglobin 12.0L, Hematocrit 35.9L, Mean Corpuscular Volume 79L, Mean Corpuscular Hemoglobin 26.6L, Mean Corpuscular Hemoglobin Concent 33.5, Red Cell Distribution Width 12.9, Platelet Count 288, Mean Platelet Volume 5.3L, Neutrophils (%) (Auto) , Lymphocytes (%) ( Auto) , Monocytes (%) (Auto) , Eosinophils (%) (Auto) , Basophils (%) (Auto) , Differential Total Cells Counted 100, Neutrophils % (Manual) 94H, Lymphocytes % (Manual) 3L, Monocytes % (Manual) 3, Eosinophils % (Manual) 0, Basophils % ( Manual) 0, Band Neutrophils 0, Platelet Estimate Adequate, Platelet Morphology Normal, Red Blood Cell Morphology Normal, Microcytosis 1+, Sodium Level 127L, Potassium Level 3.8, Chloride Level 91L, Carbon Dioxide Level 22, Anion Gap 14, Blood Urea Nitrogen 10, Creatinine 0.6L, Estimat Glomerular Filtration Rate > 60 , Glucose Level 130H, Calcium Level 7.9L Current Medications Medications (Trade) Dose Ordered Sig/Marco Route PRN Reason Start Time Stop Time Status Last Admin Dose Admin Dextrose/ Electrolytes (D5 0.45%NS W/ KCl 20mEq) 1,000 ml @ 150 mls/hr Q6H40M IV 10/10/16 03:00 11/09/16 02:59 10/11/16 05:45 Heparin Sodium (Porcine) (Heparin 5000 units/ml) 5,000 units EVERY 12 HOURS SUBQ 10/10/16 09:00 11/09/16 08:59 10/11/16 08:16 Hydromorphone HCl (Dilaudid) 0.5 mg Q3H PRN IVP Pain Score 1-3 10/10/16 01:00 10/17/16 00:59 Hydromorphone HCl (Dilaudid) 1 mg Q3H PRN IVP pain score 4-6 10/10/16 01:00 10/17/16 00:59 10/10/16 02:54 Hydromorphone HCl (Dilaudid) 2 mg Q3H PRN IVP pain score 7-10 10/10/16 01:00 10/17/16 00:59 10/11/16 16:11 Ondansetron HCl (Zofran) 4 mg Q6H PRN IVP Nausea & Vomiting 10/10/16 01:00 11/09/16 00:59 Pantoprazole 40 mg 40 mg EVERY 12 HOURS IVP 10/10/16 11:45 11/09/16 11:44 10/11/16 08:14 Piperacillin Sod/ Tazobactam Sod/ Dextrose (Zosyn/D5W 100ml) 110 ml @ 27.5 mls/hr EVERY 8 HOURS IVPB 10/10/16 14:30 10/15/16 14:29 10/11/16 14:15 Bonifacio Grullon MD Oct 11, 2016 18:22
[2016-10-11 20:00] VITALS: BP 135/89
[2016-10-12] VITALS: BP 120/80
[2016-10-12] MEDS: D5 1/2NS w/KCl 20mEq 1,000 ML IV SCH ×4 (01:40→21:27)
[2016-10-12 04:00] VITALS: BP 140/98
[2016-10-12] MEDS: Piperacillin/Tazobactam 3.375 GM in D5W 110 ML IVPB SCH ×3 (05:43→21:27)
[2016-10-12 07:38] LABS: MEAN CORPUSCULAR HEMOGLOBIN 26.7 PG (27.0-31.0); MEAN CORPUSCULAR HGB CONC 33.3 G/DL (32.0-36.0); MEAN CORPUSCULAR VOLUME 80 FL (80-99); MEAN PLATELET VOLUME 5.2 FL (6.5-10.1); PLATELET COUNT 278 K/UL (150-450); RED BLOOD COUNT 4.41 M/UL (4.70-6.10); RED CELL DISTRIBUTION WIDTH 13.5 % (11.6-14.8); WHITE BLOOD COUNT 17.4 K/UL (4.8-10.8)
[2016-10-12 08:00] VITALS: BP 136/88
[2016-10-12 08:05] LABS: ALANINE AMINOTRANSFERASE 7 U/L (3-41); ANION GAP 13 (5-15); ASPARTATE AMINO TRANSFERASE 10 U/L (5-40); CALCIUM 8.4 mg/dL (8.6-10.2); CARBON DIOXIDE 25 mEQ/L (20-30); CHLORIDE 94 mEQ/L (98-107); CREATININE 0.6 mg/dL (0.7-1.2); GLOMERULAR FILTRATION RATE > 60 mL/min (>60); HEMOLYSIS 2; POTASSIUM 4.5 mEQ/L (3.4-4.9); SODIUM 132 mEQ/L (135-145); TOTAL PROTEIN 5.9 g/dL (6.6-8.7)
--- NOTE | 2016-10-12 09:02 | Pulmonology Progress Note ---
Assessment/Plan Assessment/Plan 1. Acute abdomen, status post exploratory laparotomy with Cruz patch repair of perforated prepyloric ulcer. 2. Tobacco use. 3. Postoperative leukocytosis. TREATMENT PLAN: 1. Postoperative care. 2. Pain control, supportive care. 3. IV fluid hydration. 4. Broad-spectrum antibiotic therapy with Zosyn. 5. Follow up cultures. 6. Incentive spirometer. 7. Advance diet when okay with surgery. 8. Follow up surgery recommendations. 9. DVT prophylaxis, heparin subcutaneous. 10. Mobilize as tolerated and out of bed as tolerated. Subjective Interval Events: Doing better; NGT in place Constitutional: Reports: no symptoms HEENT: Repors: no symptoms Respiratory: Reports: no symptoms Cardiovascular: Reports: no symptoms Gastrointestinal/Abdominal: Reports: no symptoms Genitourinary: Reports: no symptoms Allergies: Coded Allergies: No Known Allergies (Unverified , 10/09/16) Objective Last 24 Hour Vital Signs Date Time Temp Pulse Resp B/P Pulse Ox O2 Delivery O2 Flow Rate FiO2 10/12/16 04:00 98.1 82 19 140/98 93 Room Air 10/12/16 00:00 98.6 67 19 120/80 90 Room Air 10/11/16 20:00 98.6 76 20 135/89 95 Nasal Cannula 2.0 10/11/16 16:41 98.2 10/11/16 16:00 98.2 81 20 132/86 94 Nasal Cannula 2.0 10/11/16 12:00 98.2 89 20 130/68 94 Nasal Cannula 2.0 Intake and Output 10/11/16 10/12/16 19:00 07:00 Intake Total 900 ml 437.5 ml Output Total 710 ml Balance 190 ml 437.5 ml IV Total 900 ml 437.5 ml Output Urine Total 650 ml Other 60 ml # Voids 2 General Appearance: no acute distress HEENT: normocephalic Respiratory/Chest: chest wall non-tender, lungs clear Cardiovascular: normal peripheral pulses, normal rate Abdomen: hypoactive bowel sounds Extremities: no cyanosis Microbiology Date/Time Source Procedure Growth Status 10/10/16 00:40 Abdomen Gram Stain - Final Resulted 10/10/16 00:40 Abdomen Aerobic Culture - Preliminary NO GROWTH AFTER 24 HOURS Resulted 10/10/16 00:40 Abdomen Anaerobic Culture - Preliminary NO GROWTH AFTER 48 HOURS Resulted Laboratory Tests 10/11/16 09:30: White Blood Count 20.7H, Red Blood Count 4.52L, Hemoglobin 12.0L, Hematocrit 35.9L, Mean Corpuscular Volume 79L, Mean Corpuscular Hemoglobin 26.6L, Mean Corpuscular Hemoglobin Concent 33.5, Red Cell Distribution Width 12.9, Platelet Count 288, Mean Platelet Volume 5.3L, Neutrophils (%) (Auto) , Lymphocytes (%) ( Auto) , Monocytes (%) (Auto) , Eosinophils (%) (Auto) , Basophils (%) (Auto) , Differential Total Cells Counted 100, Neutrophils % (Manual) 94H, Lymphocytes % (Manual) 3L, Monocytes % (Manual) 3, Eosinophils % (Manual) 0, Basophils % ( Manual) 0, Band Neutrophils 0, Platelet Estimate Adequate, Platelet Morphology Normal, Red Blood Cell Morphology Normal, Microcytosis 1+, Sodium Level 127L, Potassium Level 3.8, Chloride Level 91L, Carbon Dioxide Level 22, Anion Gap 14, Blood Urea Nitrogen 10, Creatinine 0.6L, Estimat Glomerular Filtration Rate > 60 , Glucose Level 130H, Calcium Level 7.9L 10/12/16 05:10: White Blood Count 17.4H, Red Blood Count 4.41L, Hemoglobin 11.8L, Hematocrit 35.4L, Mean Corpuscular Volume 80, Mean Corpuscular Hemoglobin 26.7L, Mean Corpuscular Hemoglobin Concent 33.3, Red Cell Distribution Width 13.5, Platelet Count 278, Mean Platelet Volume 5.2L, Neutrophils (%) (Auto) , Lymphocytes (%) ( Auto) , Monocytes (%) (Auto) , Eosinophils (%) (Auto) , Basophils (%) (Auto) , Neutrophils % (Manual) [Pending], Lymphocytes % (Manual) [Pending], Platelet Estimate [Pending], Platelet Morphology [Pending], Sodium Level 132L, Potassium Level 4.5, Chloride Level 94L, Carbon Dioxide Level 25, Anion Gap 13, Blood Urea Nitrogen 9, Creatinine 0.6L, Estimat Glomerular Filtration Rate > 60, Glucose Level 121H, Calcium Level 8.4L, Total Bilirubin 0.5, Aspartate Amino Transf (AST/SGOT) 10, Alanine Aminotransferase (ALT/SGPT) 7, Alkaline Phosphatase 61, Total Protein 5.9L, Albumin 3.0L, Globulin 2.9, Albumin/ Globulin Ratio 1.0 Current Medications Medications (Trade) Dose Ordered Sig/Marco Route PRN Reason Start Time Stop Time Status Last Admin Dose Admin Dextrose/ Electrolytes (D5 0.45%NS W/ KCl 20mEq) 1,000 ml @ 150 mls/hr Q6H40M IV 10/10/16 03:00 11/09/16 02:59 10/12/16 04:03 Heparin Sodium (Porcine) (Heparin 5000 units/ml) 5,000 units EVERY 12 HOURS SUBQ 10/10/16 09:00 11/09/16 08:59 10/11/16 21:20 Hydromorphone HCl (Dilaudid) 0.5 mg Q3H PRN IVP Pain Score 1-3 10/10/16 01:00 10/17/16 00:59 Hydromorphone HCl (Dilaudid) 1 mg Q3H PRN IVP pain score 4-6 10/10/16 01:00 10/17/16 00:59 10/10/16 02:54 Hydromorphone HCl (Dilaudid) 2 mg Q3H PRN IVP pain score 7-10 10/10/16 01:00 10/17/16 00:59 10/11/16 23:52 Ondansetron HCl (Zofran) 4 mg Q6H PRN IVP Nausea & Vomiting 10/10/16 01:00 11/09/16 00:59 Pantoprazole 40 mg 40 mg EVERY 12 HOURS IVP 10/10/16 11:45 11/09/16 11:44 10/11/16 21:11 Piperacillin Sod/ Tazobactam Sod/ Dextrose (Zosyn/D5W 100ml) 110 ml @ 27.5 mls/hr EVERY 8 HOURS IVPB 10/10/16 14:30 10/15/16 14:29 10/12/16 05:43 Bonifacio Grullon MD Oct 12, 2016 09:02
--- NOTE | 2016-10-12 09:07 | General Surgery Progress Note ---
General Surgery-Progress Note Subjective Day of Surgery: po day 2 Procedure Performed sp Cruz patch repair of perforated pyloric channel ulcer Symptoms: improved, voiding well, passing flatus Additional Comments robb removed yesterday Objective Last 24 Hour Vital Signs Date Time Temp Pulse Resp B/P Pulse Ox O2 Delivery O2 Flow Rate FiO2 10/12/16 04:00 98.1 82 19 140/98 93 Room Air 10/12/16 00:00 98.6 67 19 120/80 90 Room Air 10/11/16 20:00 98.6 76 20 135/89 95 Nasal Cannula 2.0 10/11/16 16:41 98.2 10/11/16 16:00 98.2 81 20 132/86 94 Nasal Cannula 2.0 10/11/16 12:00 98.2 89 20 130/68 94 Nasal Cannula 2.0 I&O Intake and Output 10/11/16 10/12/16 19:00 07:00 Intake Total 900 ml 437.5 ml Output Total 710 ml Balance 190 ml 437.5 ml IV Total 900 ml 437.5 ml Output Urine Total 650 ml Other 60 ml # Voids 2 Dressing: dry Wound: clean Drains: none Cardiovascular: RSR Respiratory: clear Abdomen: soft, non-tender Extremities: no edema, no tenderness, no cyanosis Laboratory Tests Test 10/11/16 09:30 10/12/16 05:10 White Blood Count 20.7 K/UL (4.8-10.8) H 17.4 K/UL (4.8-10.8) H Red Blood Count 4.52 M/UL (4.70-6.10) L 4.41 M/UL (4.70-6.10) L Hemoglobin 12.0 G/DL (14.2-18.0) L 11.8 G/DL (14.2-18.0) L Hematocrit 35.9 % (42.0-52.0) L 35.4 % (42.0-52.0) L Mean Corpuscular Volume 79 FL (80-99) L 80 FL (80-99) Mean Corpuscular Hemoglobin 26.6 PG (27.0-31.0) L 26.7 PG (27.0-31.0) L Mean Corpuscular Hemoglobin Concent 33.5 G/DL (32.0-36.0) 33.3 G/DL (32.0-36.0) Red Cell Distribution Width 12.9 % (11.6-14.8) 13.5 % (11.6-14.8) Platelet Count 288 K/UL (150-450) 278 K/UL (150-450) Mean Platelet Volume 5.3 FL (6.5-10.1) L 5.2 FL (6.5-10.1) L Neutrophils (%) (Auto) % (45.0-75.0) % (45.0-75.0) Lymphocytes (%) (Auto) % (20.0-45.0) % (20.0-45.0) Monocytes (%) (Auto) % (1.0-10.0) % (1.0-10.0) Eosinophils (%) (Auto) % (0.0-3.0) % (0.0-3.0) Basophils (%) (Auto) % (0.0-2.0) % (0.0-2.0) Differential Total Cells Counted 100 Neutrophils % (Manual) 94 % (45-75) H Pending Lymphocytes % (Manual) 3 % (20-45) L Pending Monocytes % (Manual) 3 % (1-10) Eosinophils % (Manual) 0 % (0-3) Basophils % (Manual) 0 % (0-2) Band Neutrophils 0 % (0-8) Platelet Estimate Adequate Pending Platelet Morphology Normal Pending Red Blood Cell Morphology Normal Microcytosis 1+ Sodium Level 127 mEQ/L (135-145) L 132 mEQ/L (135-145) L Potassium Level 3.8 mEQ/L (3.4-4.9) 4.5 mEQ/L (3.4-4.9) Chloride Level 91 mEQ/L (98-107) L 94 mEQ/L (98-107) L Carbon Dioxide Level 22 mEQ/L (20-30) 25 mEQ/L (20-30) Anion Gap 14 (5-15) 13 (5-15) Blood Urea Nitrogen 10 mg/dL (7-23) 9 mg/dL (7-23) Creatinine 0.6 mg/dL (0.7-1.2) L 0.6 mg/dL (0.7-1.2) L Estimat Glomerular Filtration Rate > 60 mL/min (>60) > 60 mL/min (>60) Glucose Level 130 mg/dL (74-106) H 121 mg/dL (74-106) H Calcium Level 7.9 mg/dL (8.6-10.2) L 8.4 mg/dL (8.6-10.2) L Total Bilirubin 0.5 mg/dL (0.0-1.2) Aspartate Amino Transf (AST/SGOT) 10 U/L (5-40) Alanine Aminotransferase (ALT/SGPT) 7 U/L (3-41) Alkaline Phosphatase 61 U/L (40-129) Total Protein 5.9 g/dL (6.6-8.7) L Albumin 3.0 g/dL (3.5-5.2) L Globulin 2.9 g/dL Albumin/Globulin Ratio 1.0 (1.0-2.7) Assessment Post-op Diagnosis stable post op course.\ long discussion with pt re pathophysiology, surgical findings. post-op care. discussed with Dr Grullon. Will leave NG in today Increase activities SOTERO MEDINA Oct 12, 2016 09:07
[2016-10-12 09:40] LABS: BAND NEUTROPHILS % (MANUAL) 0 % (0-8); BASOPHILS % (MANUAL) 0 % (0-2); EOSINOPHILS % (MANUAL) 0 % (0-3); HYPOCHROMASIA 1+; LYMPHOCYTES % (MANUAL) 5 % (20-45); MICROCYTES 1+; NEUTROPHILS % (MANUAL) 87 % (45-75); PLATELET ESTIMATE ADEQUATE; PLATELET MORPHOLOGY NORMAL; TOTAL CELLS COUNTED 100
[2016-10-12 09:41] LABS: ANISOCYTOSIS 1+
[2016-10-12] MEDS: Pantoprazole Inj IVP SCH ×2 (09:49→21:26)
[2016-10-12] MEDS: Heparin 5000 units/ml inj SUBQ SCH ×2 (09:50→21:13)
[2016-10-12 12:00] VITALS: BP 137/89
[2016-10-12 16:26] VITALS: BP 126/78
--- NOTE | 2016-10-12 19:52 | Cardiology Report ---
APPROVED REPORT EKG Measurement Heart [id number] Normal sinus rhythm Right atrial enlargement Borderline ECG
[2016-10-12 20:32] VITALS: BP 132/86
[2016-10-13] VITALS: BP 157/75
[2016-10-13 04:00] VITALS: BP 146/85
[2016-10-13] MEDS: D5 1/2NS w/KCl 20mEq 1,000 ML IV SCH ×4 (04:20→21:24)
[2016-10-13] MEDS: Piperacillin/Tazobactam 3.375 GM in D5W 110 ML IVPB SCH ×3 (05:36→21:25)
[2016-10-13 08:00] VITALS: BP 147/95
[2016-10-13] MEDS: Pantoprazole Inj IVP SCH ×2 (08:11→21:25)
[2016-10-13] MEDS: Heparin 5000 units/ml inj SUBQ SCH ×2 (08:12→21:27)
--- NOTE | 2016-10-13 11:36 | General Surgery Progress Note ---
General Surgery-Progress Note Subjective Procedure Performed Exploratory laparotomy with Cruz Patch repair of perforated prepyloric ulcer. Symptoms: improved, voiding well, passing flatus Additional Comments doing well. pain improved but still present. no n/v/f/c. passing flatus. no complaints. Objective Last 24 Hour Vital Signs Date Time Temp Pulse Resp B/P Pulse Ox O2 Delivery O2 Flow Rate FiO2 10/13/16 08:41 98.1 10/13/16 08:00 97.0 82 18 147/95 93 Room Air 10/13/16 04:00 98.1 84 18 146/85 92 Room Air 10/13/16 00:00 98.2 90 18 157/75 97 Room Air 10/12/16 20:32 99.1 84 18 132/86 98 Room Air 10/12/16 16:26 98.1 92 19 126/78 92 Room Air 10/12/16 12:00 97.5 92 20 137/89 96 Room Air I&O Intake and Output 10/12/16 10/13/16 19:00 07:00 Intake Total 310.0 ml 1377.5 ml Output Total 1460 ml 450 ml Balance -1150.0 ml 927.5 ml Intake Oral 0 ml IV Total 310.0 ml 1377.5 ml Output Urine Total 1400 ml 450 ml Estimated Blood Loss 50 ml Other 10 ml 0 ml # Voids 2 Dressing: dry Wound: clean, dry, intact Drains: none Cardiovascular: RSR Respiratory: clear Abdomen: soft, other Extremities: no edema, no tenderness Assessment Post-op Diagnosis 66 year old male POD #4 s/p Cruz patch of perforated prepyloric ulcer. Plan Problems: (1) Perforated chronic peptic ulcer Assessment & Plan: Continue current care and management NPO with IV fluids NG tube to low intermittent suction Continue IV Abx (perforated viscus with contamination) Protonix BID Heparin Ambulate and OOB Trend labs (leukocytosis improving but not normal yet) Potential d/c NG tube tomorrow and will consider clear liquid diet once NG tube has been removed. Thomas Bedolla MD Oct 13, 2016 11:36
[2016-10-13 12:00] VITALS: BP 140/99
[2016-10-13 16:15] VITALS: BP 145/82
--- NOTE | 2016-10-13 17:30 | Pulmonology Progress Note ---
Assessment/Plan Assessment/Plan 1. Acute abdomen, status post exploratory laparotomy with Cruz patch repair of perforated prepyloric ulcer. 2. Tobacco use. 3. Postoperative leukocytosis. TREATMENT PLAN: 1. Postoperative care. 2. Pain control, supportive care. 3. IV fluid hydration. 4. Broad-spectrum antibiotic therapy with Zosyn. 5. Follow up cultures. 6. Incentive spirometer. 7. Advance diet when okay with surgery. 8. Follow up surgery recommendations. 9. DVT prophylaxis, heparin subcutaneous. 10. Mobilize as tolerated and out of bed as tolerated. Discussed with surgery Likely dc NG tomorrow Subjective Interval Events: Still with NGT in place. Feels OK Constitutional: Reports: no symptoms HEENT: Repors: no symptoms Respiratory: Reports: no symptoms Cardiovascular: Reports: no symptoms Genitourinary: Reports: no symptoms Neurologic: Reports: no symptoms Allergies: Coded Allergies: No Known Allergies (Unverified , 10/09/16) Objective Last 24 Hour Vital Signs Date Time Temp Pulse Resp B/P Pulse Ox O2 Delivery O2 Flow Rate FiO2 10/13/16 16:15 98.2 86 18 145/82 92 Room Air 10/13/16 14:17 98.2 10/13/16 12:00 98.2 84 18 140/99 92 Room Air 10/13/16 08:00 97.0 82 18 147/95 93 Room Air 10/13/16 04:00 98.1 84 18 146/85 92 Room Air 10/13/16 00:00 98.2 90 18 157/75 97 Room Air 10/12/16 20:32 99.1 84 18 132/86 98 Room Air Intake and Output 10/12/16 10/13/16 19:00 07:00 Intake Total 310.0 ml 1377.5 ml Output Total 1460 ml 450 ml Balance -1150.0 ml 927.5 ml Intake Oral 0 ml IV Total 310.0 ml 1377.5 ml Output Urine Total 1400 ml 450 ml Estimated Blood Loss 50 ml Other 10 ml 0 ml # Voids 2 General Appearance: no acute distress HEENT: normocephalic Respiratory/Chest: chest wall non-tender, lungs clear Cardiovascular: normal peripheral pulses, normal rate Abdomen: normal bowel sounds, soft, non tender Laboratory Tests 10/13/16 05:10: Helicobacter pylori IgG Antibody [Pending], Helicobacter pylori IgA Antibody [ Pending], Helicobacter pylori IgM Antibody [Pending] Current Medications Medications (Trade) Dose Ordered Sig/Marco Route PRN Reason Start Time Stop Time Status Last Admin Dose Admin Dextrose/ Electrolytes (D5 0.45%NS W/ KCl 20mEq) 1,000 ml @ 150 mls/hr Q6H40M IV 10/10/16 03:00 11/09/16 02:59 10/13/16 10:22 Heparin Sodium (Porcine) (Heparin 5000 units/ml) 5,000 units EVERY 12 HOURS SUBQ 10/10/16 09:00 11/09/16 08:59 10/13/16 08:12 Hydromorphone HCl (Dilaudid) 0.5 mg Q3H PRN IVP Pain Score 1-3 10/10/16 01:00 10/17/16 00:59 Hydromorphone HCl (Dilaudid) 1 mg Q3H PRN IVP pain score 4-6 10/10/16 01:00 10/17/16 00:59 10/10/16 02:54 Hydromorphone HCl (Dilaudid) 2 mg Q3H PRN IVP pain score 7-10 10/10/16 01:00 10/17/16 00:59 10/13/16 13:47 Ondansetron HCl (Zofran) 4 mg Q6H PRN IVP Nausea & Vomiting 10/10/16 01:00 11/09/16 00:59 Pantoprazole 40 mg 40 mg EVERY 12 HOURS IVP 10/10/16 11:45 11/09/16 11:44 10/13/16 08:11 Piperacillin Sod/ Tazobactam Sod/ Dextrose (Zosyn/D5W 100ml) 110 ml @ 27.5 mls/hr EVERY 8 HOURS IVPB 10/10/16 14:30 10/15/16 14:29 10/13/16 13:47 Bonifacio Grullon MD Oct 13, 2016 17:30
[2016-10-13 20:00] VITALS: BP 144/60
[2016-10-14] VITALS: BP 140/91
[2016-10-14] MEDS: HYDROmorphone 1mg/ml Carpuject IVP PRN ×2 (00:43→06:29)
[2016-10-14 04:00] VITALS: BP 136/90
[2016-10-14 06:17] LABS: BASOPHILS % (AUTO) 0.5 % (0.0-2.0); EOSINOPHILS % (AUTO) 1.4 % (0.0-3.0); LYMPHOCYTES % (AUTO) 9.1 % (20.0-45.0); MEAN CORPUSCULAR HEMOGLOBIN 26.7 PG (27.0-31.0); MEAN CORPUSCULAR HGB CONC 33.8 G/DL (32.0-36.0); MEAN CORPUSCULAR VOLUME 79 FL (80-99); MEAN PLATELET VOLUME 4.9 FL (6.5-10.1); MONOCYTES % (AUTO) 8.6 % (1.0-10.0); NEUTROPHILS % (AUTO) 80.4 % (45.0-75.0); PLATELET COUNT 329 K/UL (150-450); RED BLOOD COUNT 4.21 M/UL (4.70-6.10); RED CELL DISTRIBUTION WIDTH 12.8 % (11.6-14.8); WHITE BLOOD COUNT 12.2 K/UL (4.8-10.8)
[2016-10-14] MEDS: Piperacillin/Tazobactam 3.375 GM in D5W 110 ML IVPB SCH ×3 (06:28→22:14)
[2016-10-14] MEDS: D5 1/2NS w/KCl 20mEq 1,000 ML IV SCH ×3 (06:28→20:38)
[2016-10-14 06:40] LABS: ANION GAP 12 (5-15); CALCIUM 8.1 mg/dL (8.6-10.2); CARBON DIOXIDE 24 mEQ/L (20-30); CHLORIDE 90 mEQ/L (98-107); CREATININE 0.6 mg/dL (0.7-1.2); GLOMERULAR FILTRATION RATE > 60 mL/min (>60); HEMOLYSIS 1; POTASSIUM 3.8 mEQ/L (3.4-4.9); SODIUM 126 mEQ/L (135-145)
[2016-10-14 08:00] VITALS: BP 130/83
[2016-10-14] MEDS: Pantoprazole Inj IVP SCH ×2 (08:17→20:41)
[2016-10-14] MEDS: Heparin 5000 units/ml inj SUBQ SCH ×2 (08:18→20:55)
--- NOTE | 2016-10-14 09:32 | Pulmonology Progress Note ---
Assessment/Plan Assessment/Plan 1. Acute abdomen, status post exploratory laparotomy with Cruz patch repair of perforated prepyloric ulcer. 2. Tobacco use. 3. Postoperative leukocytosis. TREATMENT PLAN: 1. Postoperative care. 2. Pain control, supportive care. 3. IV fluid hydration. 4. Broad-spectrum antibiotic therapy with Zosyn. 5. Follow up cultures. 6. Incentive spirometer. 7. Advance diet when okay with surgery. 8. Follow up surgery recommendations. 9. DVT prophylaxis, heparin subcutaneous. 10. Mobilize as tolerated and out of bed as tolerated. Discussed with surgery Likely dc NG Had BM Improved WBC Has hyponatremia PATIENT STATES THAT HE WOULD PREFER IF I DO NOT SEE HIM AND THAT HE WOULD PREFER TO HAVE HIS CARE ONLY MANAGED BY SURGERY Subjective Interval Events: Staes he had 2 BM yesterday Constitutional: Reports: no symptoms HEENT: Repors: no symptoms Respiratory: Reports: no symptoms Cardiovascular: Reports: no symptoms Genitourinary: Reports: no symptoms Neurologic: Reports: no symptoms Allergies: Coded Allergies: No Known Allergies (Unverified , 10/09/16) Objective Last 24 Hour Vital Signs Date Time Temp Pulse Resp B/P Pulse Ox O2 Delivery O2 Flow Rate FiO2 10/14/16 04:00 98.2 80 18 136/90 93 Room Air 10/14/16 00:00 99.1 87 18 140/91 93 Room Air 10/13/16 20:00 98.6 89 19 144/60 93 Room Air 10/13/16 16:15 98.2 86 18 145/82 92 Room Air 10/13/16 14:17 98.2 10/13/16 12:00 98.2 84 18 140/99 92 Room Air Intake and Output 10/13/16 10/14/16 19:00 07:00 Intake Total 600 ml 600 ml Output Total 420 ml 580 ml Balance 180 ml 20 ml IV Total 600 ml 600 ml Output Urine Total 400 ml 500 ml Other 20 ml 80 ml # Voids 2 5 # Bowel Movements 2 General Appearance: no acute distress HEENT: normocephalic Respiratory/Chest: chest wall non-tender, lungs clear Cardiovascular: normal peripheral pulses, normal rate Abdomen: soft, non tender Laboratory Tests 10/14/16 05:50: White Blood Count 12.2H, Red Blood Count 4.21L, Hemoglobin 11.3L, Hematocrit 33.3L, Mean Corpuscular Volume 79L, Mean Corpuscular Hemoglobin 26.7L, Mean Corpuscular Hemoglobin Concent 33.8, Red Cell Distribution Width 12.8, Platelet Count 329, Mean Platelet Volume 4.9L, Neutrophils (%) (Auto) 80.4H, Lymphocytes (%) (Auto) 9.1L, Monocytes (%) (Auto) 8.6, Eosinophils (%) (Auto) 1.4, Basophils (%) (Auto) 0.5, Sodium Level 126L, Potassium Level 3.8, Chloride Level 90L, Carbon Dioxide Level 24, Anion Gap 12, Blood Urea Nitrogen 7, Creatinine 0.6L, Estimat Glomerular Filtration Rate > 60, Glucose Level 116H, Calcium Level 8.1L Current Medications Medications (Trade) Dose Ordered Sig/Marco Route PRN Reason Start Time Stop Time Status Last Admin Dose Admin Dextrose/ Electrolytes (D5 0.45%NS W/ KCl 20mEq) 1,000 ml @ 150 mls/hr Q6H40M IV 10/10/16 03:00 11/09/16 02:59 10/14/16 06:28 Heparin Sodium (Porcine) (Heparin 5000 units/ml) 5,000 units EVERY 12 HOURS SUBQ 10/10/16 09:00 11/09/16 08:59 10/14/16 08:18 Hydromorphone HCl (Dilaudid) 0.5 mg Q3H PRN IVP Pain Score 1-3 10/10/16 01:00 10/17/16 00:59 Hydromorphone HCl (Dilaudid) 1 mg Q3H PRN IVP pain score 4-6 10/10/16 01:00 10/17/16 00:59 10/14/16 06:29 Hydromorphone HCl (Dilaudid) 2 mg Q3H PRN IVP pain score 7-10 10/10/16 01:00 10/17/16 00:59 10/13/16 17:47 Ondansetron HCl (Zofran) 4 mg Q6H PRN IVP Nausea & Vomiting 10/10/16 01:00 11/09/16 00:59 Pantoprazole 40 mg 40 mg EVERY 12 HOURS IVP 10/10/16 11:45 11/09/16 11:44 10/14/16 08:17 Piperacillin Sod/ Tazobactam Sod/ Dextrose (Zosyn/D5W 100ml) 110 ml @ 27.5 mls/hr EVERY 8 HOURS IVPB 10/10/16 14:30 10/15/16 14:29 10/14/16 06:28 Bonifacio Grullon MD Oct 14, 2016 09:32
--- NOTE | 2016-10-14 10:25 | General Surgery Progress Note ---
General Surgery-Progress Note Subjective Procedure Performed exploratory laparotomy, repair of perforated prepyloric ulcer with Cruz patch Chief Complaint: feels beeter, having BM's, NG: scanty bilous output Symptoms: improved Objective Last 24 Hour Vital Signs Date Time Temp Pulse Resp B/P Pulse Ox O2 Delivery O2 Flow Rate FiO2 10/14/16 08:00 97.9 79 22 130/83 94 Room Air 10/14/16 04:00 98.2 80 18 136/90 93 Room Air 10/14/16 00:00 99.1 87 18 140/91 93 Room Air 10/13/16 20:00 98.6 89 19 144/60 93 Room Air 10/13/16 16:15 98.2 86 18 145/82 92 Room Air 10/13/16 14:17 98.2 10/13/16 12:00 98.2 84 18 140/99 92 Room Air I&O Intake and Output 10/13/16 10/14/16 19:00 07:00 Intake Total 600 ml 750 ml Output Total 420 ml 580 ml Balance 180 ml 170 ml IV Total 600 ml 750 ml Output Urine Total 400 ml 500 ml Other 20 ml 80 ml # Voids 2 5 # Bowel Movements 2 Wound: clean Drains: none Cardiovascular: RSR Respiratory: clear Abdomen: soft, present bowel sounds Extremities: no edema Laboratory Tests Test 10/14/16 05:50 White Blood Count 12.2 K/UL (4.8-10.8) H Red Blood Count 4.21 M/UL (4.70-6.10) L Hemoglobin 11.3 G/DL (14.2-18.0) L Hematocrit 33.3 % (42.0-52.0) L Mean Corpuscular Volume 79 FL (80-99) L Mean Corpuscular Hemoglobin 26.7 PG (27.0-31.0) L Mean Corpuscular Hemoglobin Concent 33.8 G/DL (32.0-36.0) Red Cell Distribution Width 12.8 % (11.6-14.8) Platelet Count 329 K/UL (150-450) Mean Platelet Volume 4.9 FL (6.5-10.1) L Neutrophils (%) (Auto) 80.4 % (45.0-75.0) H Lymphocytes (%) (Auto) 9.1 % (20.0-45.0) L Monocytes (%) (Auto) 8.6 % (1.0-10.0) Eosinophils (%) (Auto) 1.4 % (0.0-3.0) Basophils (%) (Auto) 0.5 % (0.0-2.0) Sodium Level 126 mEQ/L (135-145) L Potassium Level 3.8 mEQ/L (3.4-4.9) Chloride Level 90 mEQ/L (98-107) L Carbon Dioxide Level 24 mEQ/L (20-30) Anion Gap 12 (5-15) Blood Urea Nitrogen 7 mg/dL (7-23) Creatinine 0.6 mg/dL (0.7-1.2) L Estimat Glomerular Filtration Rate > 60 mL/min (>60) Glucose Level 116 mg/dL (74-106) H Calcium Level 8.1 mg/dL (8.6-10.2) L Additional Comments S/P laparotomy for perforated gastric prepyloric ulcer repair GI function returning, WBC down. Assessment Additional Comments D/C NG tube (done) Clear liquids Ambulate, Decrease IV's 100 hr. YU [facility] Oct 14, 2016 10:25
[2016-10-14 12:00] VITALS: BP 134/92
[2016-10-14 16:26] VITALS: BP 141/87
[2016-10-14 20:45] VITALS: BP 130/83
[2016-10-15] VITALS: BP 140/86
[2016-10-15] MEDS: HYDROmorphone 1mg/ml Carpuject IVP PRN (01:29)
[2016-10-15 04:00] VITALS: BP 134/81
[2016-10-15] MEDS: Piperacillin/Tazobactam 3.375 GM in D5W 110 ML IVPB SCH ×3 (05:55→22:39)
[2016-10-15] MEDS: D5 1/2NS w/KCl 20mEq 1,000 ML IV SCH ×2 (06:00→10:44)
[2016-10-15 08:00] VITALS: BP 126/86
[2016-10-15] MEDS: Pantoprazole Inj IVP SCH (08:51)
[2016-10-15] MEDS: Heparin 5000 units/ml inj SUBQ SCH ×2 (08:53→21:08)
--- NOTE | 2016-10-15 10:02 | Pulmonology Progress Note ---
Assessment/Plan Assessment/Plan 1. Acute abdomen, status post exploratory laparotomy with Cruz patch repair of perforated prepyloric ulcer. 2. Tobacco use. 3. Postoperative leukocytosis. TREATMENT PLAN: 1. Postoperative care. 2. Pain control, supportive care. 3. IV fluid hydration. 4. Broad-spectrum antibiotic therapy with Zosyn. 5. Follow up cultures. 6. Incentive spirometer. 7. Advance diet when okay with surgery. 8. Follow up surgery recommendations. 9. DVT prophylaxis, heparin subcutaneous. 10. Mobilize as tolerated and out of bed as tolerated. Discussed with surgery NG discontinued Had BM Improved WBC Has hyponatremia PATIENT STATES THAT HE WOULD PREFER IF I DO NOT SEE HIM AND THAT HE WOULD PREFER TO HAVE HIS CARE ONLY MANAGED BY SURGERY Subjective Interval Events: NG out; on clears Constitutional: Reports: no symptoms HEENT: Repors: no symptoms Respiratory: Reports: no symptoms Cardiovascular: Reports: no symptoms Gastrointestinal/Abdominal: Reports: no symptoms Allergies: Coded Allergies: No Known Allergies (Unverified , 10/09/16) Objective Last 24 Hour Vital Signs Date Time Temp Pulse Resp B/P Pulse Ox O2 Delivery O2 Flow Rate FiO2 10/15/16 08:00 97.0 72 20 126/86 97 Room Air 10/15/16 04:00 97.5 72 20 134/81 95 Room Air 10/15/16 00:00 97.7 76 19 140/86 98 Nasal Cannula 2.0 10/14/16 20:45 97.7 78 18 130/83 95 Room Air 10/14/16 16:26 98.1 80 19 141/87 95 Room Air 10/14/16 12:00 98.1 85 20 134/92 95 Room Air Intake and Output 10/14/16 10/15/16 19:00 07:00 Intake Total 1775 ml 1295.0 ml Output Total 50 ml 1425 ml Balance 1725 ml -130.0 ml Intake Oral 625 ml 240 ml IV Total 1150 ml 1055.0 ml Output Urine Total 1425 ml Other 50 ml # Voids 2 # Bowel Movements 2 General Appearance: WD/WN HEENT: normocephalic Respiratory/Chest: chest wall non-tender, lungs clear Cardiovascular: normal peripheral pulses, normal rate Current Medications Medications (Trade) Dose Ordered Sig/Marco Route PRN Reason Start Time Stop Time Status Last Admin Dose Admin Acetaminophen/ Hydrocodone Bitart ([place] 325) 1 ea Q4H PRN ORAL Breakthrough Pain 10/14/16 10:30 10/21/16 10:29 Dextrose/ Electrolytes (D5 0.45%NS W/ KCl 20mEq) 1,000 ml @ 100 mls/hr Q10H IV 10/14/16 11:00 11/13/16 10:59 10/14/16 20:38 Heparin Sodium (Porcine) (Heparin 5000 units/ml) 5,000 units EVERY 12 HOURS SUBQ 10/10/16 09:00 11/09/16 08:59 10/15/16 08:53 Hydromorphone HCl (Dilaudid) 0.5 mg Q3H PRN IVP Pain Score 1-3 10/10/16 01:00 10/17/16 00:59 Hydromorphone HCl (Dilaudid) 1 mg Q3H PRN IVP pain score 4-6 10/10/16 01:00 10/17/16 00:59 10/15/16 01:29 Hydromorphone HCl (Dilaudid) 2 mg Q3H PRN IVP pain score 7-10 10/10/16 01:00 10/17/16 00:59 10/14/16 16:41 Ondansetron HCl (Zofran) 4 mg Q6H PRN IVP Nausea & Vomiting 10/10/16 01:00 11/09/16 00:59 Pantoprazole 40 mg 40 mg EVERY 12 HOURS IVP 10/10/16 11:45 11/09/16 11:44 10/15/16 08:51 Piperacillin Sod/ Tazobactam Sod 3.375 gm/Dextrose 110 ml @ 27.5 mls/hr EVERY 8 HOURS IVPB 10/10/16 14:30 10/16/16 23:59 10/15/16 05:55 Bonifacio Grullon MD Oct 15, 2016 10:02
--- NOTE | 2016-10-15 10:39 | General Surgery Progress Note ---
General Surgery-Progress Note Subjective Procedure Performed exploratory laparotomy, repair of perforated prepyloric ulcer with Cruz patch Chief Complaint: tolerating clears, having BM's. pain decreased Symptoms: improved Additional Comments "afraid to eat solids" (remembers pain from before surgery with solids) Objective Last 24 Hour Vital Signs Date Time Temp Pulse Resp B/P Pulse Ox O2 Delivery O2 Flow Rate FiO2 10/15/16 08:00 97.0 72 20 126/86 97 Room Air 10/15/16 04:00 97.5 72 20 134/81 95 Room Air 10/15/16 00:00 97.7 76 19 140/86 98 Nasal Cannula 2.0 10/14/16 20:45 97.7 78 18 130/83 95 Room Air 10/14/16 16:26 98.1 80 19 141/87 95 Room Air 10/14/16 12:00 98.1 85 20 134/92 95 Room Air I&O Intake and Output 10/14/16 10/15/16 19:00 07:00 Intake Total 1775 ml 1295.0 ml Output Total 50 ml 1425 ml Balance 1725 ml -130.0 ml Intake Oral 625 ml 240 ml IV Total 1150 ml 1055.0 ml Output Urine Total 1425 ml Other 50 ml # Voids 2 # Bowel Movements 2 Wound: clean Drains: none Cardiovascular: RSR Respiratory: clear Abdomen: soft, present bowel sounds Extremities: no edema Additional Comments Stable s/p exploratory laparotomy and closure of perforated prepyloric perforated ulcer with Cruz patch GI function returning. Assessment Additional Comments Cont IV rate 60 cc/hr, full liquids, PO meds (encourage) Ambulating Cont PPI's YU [facility]SU Oct 15, 2016 10:38
[2016-10-15 12:00] VITALS: BP 144/99
[2016-10-15] MEDS: Norco 10mg/325mg tab ORAL PRN ×3 (12:43→21:02)
[2016-10-15 16:21] VITALS: BP 122/87
[2016-10-15 20:00] VITALS: BP 139/94
[2016-10-16] VITALS: BP 130/89
[2016-10-16] MEDS: Norco 10mg/325mg tab ORAL PRN ×4 (01:08→22:54)
[2016-10-16] MEDS: D5 1/2NS w/KCl 20mEq 1,000 ML IV SCH ×2 (03:24→21:30)
[2016-10-16 04:00] VITALS: BP 140/69
[2016-10-16] MEDS: Piperacillin/Tazobactam 3.375 GM in D5W 110 ML IVPB SCH ×3 (05:46→21:27)
--- NOTE | 2016-10-16 07:55 | Pulmonology Progress Note ---
Assessment/Plan Assessment/Plan 1. Acute abdomen, status post exploratory laparotomy with Cruz patch repair of perforated prepyloric ulcer. 2. Tobacco use. 3. Postoperative leukocytosis. TREATMENT PLAN: 1. Postoperative care. 2. Pain control, supportive care. 3. IV fluid hydration. 4. Broad-spectrum antibiotic therapy with Zosyn. 5. Follow up cultures. 6. Incentive spirometer. 7. Advance diet when okay with surgery. 8. Follow up surgery recommendations. 9. DVT prophylaxis, heparin subcutaneous. 10. Mobilize as tolerated and out of bed as tolerated. Discussed with surgery NG discontinued Had BM Improved WBC Has hyponatremia PATIENT STATES THAT HE WOULD PREFER IF I DO NOT SEE HIM AND THAT HE WOULD PREFER TO HAVE HIS CARE ONLY MANAGED BY SURGERY Subjective Interval Events: No change; +BM Constitutional: Reports: no symptoms HEENT: Repors: no symptoms Respiratory: Reports: no symptoms Cardiovascular: Reports: no symptoms Gastrointestinal/Abdominal: Reports: no symptoms Allergies: Coded Allergies: No Known Allergies (Unverified , 10/09/16) Objective Last 24 Hour Vital Signs Date Time Temp Pulse Resp B/P Pulse Ox O2 Delivery O2 Flow Rate FiO2 10/16/16 04:00 97.9 67 18 140/69 95 Room Air 10/16/16 00:00 97.9 68 18 130/89 95 Room Air 10/15/16 20:00 97.3 74 18 139/94 96 Room Air 10/15/16 16:21 98.1 72 19 122/87 96 Room Air 10/15/16 13:42 97.0 10/15/16 12:00 99.1 74 20 144/99 96 Room Air 10/15/16 08:00 97.0 72 20 126/86 97 Room Air Intake and Output 10/15/16 10/16/16 19:00 07:00 Intake Total 1050.0 ml 960 ml Output Total 400 ml 300 ml Balance 650.0 ml 660 ml Intake Oral 600 ml 540 ml IV Total 450.0 ml 420 ml Output Urine Total 400 ml 300 ml # Voids 5 2 # Bowel Movements 6 1 General Appearance: no acute distress HEENT: normocephalic Respiratory/Chest: chest wall non-tender, lungs clear Cardiovascular: normal peripheral pulses Current Medications Medications (Trade) Dose Ordered Sig/Marco Route PRN Reason Start Time Stop Time Status Last Admin Dose Admin Acetaminophen/ Hydrocodone Bitart 1 ea 1 ea Q4H PRN ORAL Breakthrough Pain 10/14/16 10:30 10/21/16 10:29 10/16/16 05:46 Dextrose/ Electrolytes (D5 0.45%NS W/ KCl 20mEq) 1,000 ml @ 60 mls/hr [id number] IV 10/15/16 10:44 11/14/16 10:43 10/15/16 10:44 Heparin Sodium (Porcine) (Heparin 5000 units/ml) 5,000 units EVERY 12 HOURS SUBQ 10/10/16 09:00 11/09/16 08:59 10/15/16 21:08 Hydromorphone HCl (Dilaudid) 0.5 mg Q3H PRN IVP Pain Score 1-3 10/10/16 01:00 10/17/16 00:59 Hydromorphone HCl (Dilaudid) 1 mg Q3H PRN IVP pain score 4-6 10/10/16 01:00 10/17/16 00:59 10/15/16 01:29 Ondansetron HCl 4 mg 4 mg Q6H PRN IVP Nausea & Vomiting 10/10/16 01:00 11/09/16 00:59 Pantoprazole (Protonix) 40 mg Q12H ORAL 10/15/16 21:00 11/14/16 20:59 10/15/16 21:02 Piperacillin Sod/ Tazobactam Sod/ Dextrose (Zosyn/D5W) 110 ml @ 27.5 mls/hr EVERY 8 HOURS IVPB 10/10/16 14:30 10/16/16 23:59 10/16/16 05:46 Bonifacio Grullon MD Oct 16, 2016 07:55
[2016-10-16 08:00] VITALS: BP 127/80
[2016-10-16] MEDS: Heparin 5000 units/ml inj SUBQ SCH ×2 (09:20→21:32)
--- NOTE | 2016-10-16 09:55 | General Progress Note ---
Progress Note Progress Note Afebrile, looks and feels better, no N/V, tolerating full liquids without problem. Having BM's Abdomen Soft, wound clean, bijal in place, healing well. Impression: doing well, s/p exploratory laparotomy and repair of prepyloric ulcer perforation with Cruz patch Soft diet, home tomorrow on PPI's if all OK. YU [facility] Oct 16, 2016 09:54
[2016-10-16 12:00] VITALS: BP 123/90
[2016-10-16 16:15] VITALS: BP 133/89
[2016-10-16 20:00] VITALS: BP 140/93
[2016-10-17] VITALS: BP 128/83
[2016-10-17 04:00] VITALS: BP 130/83
[2016-10-17] MEDS: Norco 10mg/325mg tab ORAL PRN (05:10)
[2016-10-17 08:00] VITALS: BP 111/70
[2016-10-17] MEDS: Heparin 5000 units/ml inj SUBQ SCH (08:28)
[2016-10-17] MEDS ORDERED: HYDROCODON-ACE1 EA13 ORAL (10:01)
[2016-10-17] MEDS ORDERED: PROTONIX40 MG ORAL (10:01)
[2016-10-17] MEDS ORDERED: SENNA S TABLET1 EAC1 PO (10:01)
--- NOTE | 2016-10-17 10:03 | Discharge Instructions ---
Discharge Instructions Discharge Instructions Follow up with: Dr. Bhatia this coming Thursday. Call [phone] to schedule appointm Call MD/Return to Hospital if: worsening condition Diet: regular Resume Normal Activity?: Yes - no heavy lifting for 4 weeks. Activity: as tolerated, okay to shower For Surgical Patients Clean and Dry: surgical site Dressing Care: keep dry and clean May shower: Yes Contact your physician for: bleeding, pain, tenderness, redness, swelling, yellowish discharge in the op. site For Congestive Heart Failure Reminder Report to your physician any weight gain of 5 pounds or more in one week. Thomas Bedolla MD Oct 17, 2016 10:03
--- NOTE | 2016-10-17 10:11 | Discharge Summary ---
Discharge Summary Hospital Course Date of Admission Oct 10, 2016 at 02:05 Date of Discharge 10/17/2016 Admitting Diagnosis perforated viscus; perforated prepyloric ulcer Reason for Hospitalization: s/p repair of perforated chronic peptic ulcer with Cruz Patch HPI Yinka Crane is a 66 year old male who was admitted on Oct 10, 2016 at 02:05 for Abdominal Pain. was found to have free air on radiological exam. CT demonstrated likely perforated peptic ulcer. had peritonitis on exam and leukocytosis. surgery called to evaluate. Procedures s/p repair of perforated chronic peptic ulcer with Cruz Patch Hospital Course patient was taken from the ED to the OR. Exploratory laparotomy was performed and a perforated anterior prepyloric peptic ulcer was noted. the abdomen was washed out and perforation repaired with Cruz patch. Patient was admitted for care and management post op. He was kept NPO with IV fluids, IV Abx, and NG Tube decompression for approximately 5 days. during these 5 post operative days he was well and improving. his pain improved. leukocytosis improved. he was recovering well. his NG tube was then removed and he was started on a liquid diet. he tolerated his liquid diet and was then slowly advanced to a regular diet. upon discharge he was afebrile, HD stable, labs improved, tolerating oral diet, ambulatory, and significantly improved. He was discharged home on 10/17/2016 in stable condition. Discharge Medications New Medications: Sennosides/Docusate Sodium (Senna S Tablet) 1 Each Tablet 1 EACH PO BID for 30 Days, #60 TAB 1 Refill Hydrocodone Bit/Acetaminophen 10-325* (Hydrocodon-Acetaminophn 10-325*) 1 Each Tablet 1 EA ORAL Q4H PRN for 15 Days, #30 TAB Pantoprazole* (Protonix*) 40 Mg Tablet.dr 40 MG ORAL Q12H for 30 Days, #60 TAB 9 Refills Discontinued Medications: Ranitidine Hcl* (Zantac*) 150 Mg Tablet 150 MG ORAL DAILY, #30 TAB 0 Refills Discharge Condition Upon Discharge: improving, stable Discharge Disposition Patient was discharged to home Discharge Diagnoses: (1) Perforated chronic peptic ulcer Discharge Instructions Discharge Instructions Follow up with: Dr. Bhatia this coming Thursday. Call [phone] to schedule appointm Call MD/Return to Hospital if: worsening condition Activity: as tolerated, okay to shower For Surgical Patients Clean and Dry: surgical site Dressing Care: keep dry and clean May shower: Yes Contact your physician for: bleeding, pain, tenderness, redness, swelling, yellowish discharge in the op. site Thomas Bedolla MD Oct 17, 2016 10:11
--- NOTE | 2016-10-17 10:18 | Discharge Instructions ---
Discharge Instructions Discharge Instructions Follow up with: Dr. Bedolla on 10/21/2016. please call [phone] Call MD/Return to Hospital if: worsening condition Diet: regular Resume Normal Activity?: Yes Activity: light activity, as tolerated For Surgical Patients Clean and Dry: surgical site Dressing Care: keep dry and clean May shower: Yes Contact your physician for: bleeding, pain, tenderness, redness, swelling, yellowish discharge in the op. site For Congestive Heart Failure Reminder Report to your physician any weight gain of 5 pounds or more in one week. Thomas Bedolla MD Oct 17, 2016 10:18
[2016-10-17] MEDS ORDERED: HYDROCODON-ACE1 EA15 ORAL (10:19)
--- NOTE | 2016-10-17 10:21 | General Progress Note ---
Progress Note Progress Note patient seen and examined. doing well. tolerating oral diet. ambulatory. no issues plan to advance diet discharge home today follow up with me this coming thursday discharge meds as written will start h. pylori abx today (IgG positive) Thomas Bedolla MD Oct 17, 2016 10:21
[2016-10-17] MEDS ORDERED: AMOXICILLIN500 M1 PO (10:25)
[2016-10-17] MEDS ORDERED: BIAXIN500 MG ORAL (10:25)
[2016-10-17 10:41] LABS: BASOPHILS % (AUTO) 0.6 % (0.0-2.0); EOSINOPHILS % (AUTO) 2.4 % (0.0-3.0); LYMPHOCYTES % (AUTO) 20.4 % (20.0-45.0); MEAN CORPUSCULAR HEMOGLOBIN 26.2 PG (27.0-31.0); MEAN CORPUSCULAR VOLUME 79 FL (80-99); MEAN PLATELET VOLUME 4.9 FL (6.5-10.1); MONOCYTES % (AUTO) 8.4 % (1.0-10.0); NEUTROPHILS % (AUTO) 68.2 % (45.0-75.0); PLATELET COUNT 475 K/UL (150-450); RED BLOOD COUNT 4.36 M/UL (4.70-6.10); RED CELL DISTRIBUTION WIDTH 13.1 % (11.6-14.8); WHITE BLOOD COUNT 11.3 K/UL (4.8-10.8)
--- NOTE | 2016-10-17 10:41 | Pulmonology Progress Note ---
Assessment/Plan Assessment/Plan 1. Acute abdomen, status post exploratory laparotomy with Cruz patch repair of perforated prepyloric ulcer. 2. Tobacco use. 3. Postoperative leukocytosis. TREATMENT PLAN: 1. Postoperative care. 2. Pain control, supportive care. 3. DC IV fluids 4 DC home Subjective Interval Events: Doing better; tolerating soft diet Constitutional: Reports: no symptoms HEENT: Repors: no symptoms Respiratory: Reports: no symptoms Cardiovascular: Reports: no symptoms Gastrointestinal/Abdominal: Reports: no symptoms Allergies: Coded Allergies: No Known Allergies (Unverified , 10/09/16) Objective Last 24 Hour Vital Signs Date Time Temp Pulse Resp B/P Pulse Ox O2 Delivery O2 Flow Rate FiO2 10/17/16 08:00 98.1 67 20 111/70 97 Room Air 10/17/16 04:00 98.4 65 18 130/83 95 Nasal Cannula 2.0 10/17/16 00:00 98.1 69 20 128/83 94 Nasal Cannula 2.0 10/16/16 20:00 97.7 72 19 140/93 95 Room Air 10/16/16 16:15 98.1 77 19 133/89 94 Room Air 10/16/16 14:00 98.2 10/16/16 12:00 98.2 70 20 123/90 96 Room Air Intake and Output 10/16/16 10/17/16 19:00 07:00 Intake Total 820 ml 420 ml Output Total 800 ml Balance 820 ml -380 ml Intake Oral 360 ml 240 ml IV Total 460 ml 180 ml Output Urine Total 800 ml # Voids 3 2 # Bowel Movements 2 1 General Appearance: no acute distress HEENT: normocephalic Respiratory/Chest: chest wall non-tender, lungs clear, normal breath sounds Cardiovascular: normal peripheral pulses, normal rate, regular rhythm Abdomen: normal bowel sounds, soft, non tender Laboratory Tests 10/17/16 10:10: White Blood Count [Pending], Red Blood Count [Pending], Hemoglobin [Pending], Hematocrit [Pending], Mean Corpuscular Volume [Pending], Mean Corpuscular Hemoglobin [Pending], Mean Corpuscular Hemoglobin Concent [Pending], Red Cell Distribution Width [Pending], Platelet Count [Pending], Mean Platelet Volume [ Pending], Neutrophils (%) (Auto) [Pending], Lymphocytes (%) (Auto) [Pending], Monocytes (%) (Auto) [Pending], Eosinophils (%) (Auto) [Pending], Basophils (%) (Auto) [Pending], Sodium Level [Pending], Potassium Level [Pending], Chloride Level [Pending], Carbon Dioxide Level [Pending], Blood Urea Nitrogen [Pending], Creatinine [Pending], Estimat Glomerular Filtration Rate [Pending], Glucose Level [Pending], Calcium Level [Pending] Current Medications Medications (Trade) Dose Ordered Sig/Marco Route PRN Reason Start Time Stop Time Status Last Admin Dose Admin Acetaminophen/ Hydrocodone Bitart (Fairchance 10/325) 1 ea Q4H PRN ORAL Breakthrough Pain 10/14/16 10:30 10/21/16 10:29 10/17/16 05:10 Heparin Sodium (Porcine) (Heparin 5000 units/ml) 5,000 units EVERY 12 HOURS SUBQ 10/10/16 09:00 11/09/16 08:59 10/17/16 08:28 Ondansetron HCl (Zofran) 4 mg Q6H PRN IVP Nausea & Vomiting 10/10/16 01:00 11/09/16 00:59 Pantoprazole (Protonix) 40 mg Q12H ORAL 10/15/16 21:00 11/14/16 20:59 10/17/16 08:33 Bonifacio Grullon MD Oct 17, 2016 10:41
[2016-10-17 10:58] LABS: ANION GAP 14 (5-15); CALCIUM 8.5 mg/dL (8.6-10.2); CARBON DIOXIDE 24 mEQ/L (20-30); CHLORIDE 93 mEQ/L (98-107); CREATININE 0.6 mg/dL (0.7-1.2); GLOMERULAR FILTRATION RATE > 60 mL/min (>60); HEMOLYSIS 0; POTASSIUM 3.7 mEQ/L (3.4-4.9); SODIUM 131 mEQ/L (135-145)
[2016-10-17] MEDS ORDERED: Tubing IV Secondary IV ONE (11:59)
== END 2016-10-17 12:00 | disposition home or self-care (01) | DRG 222 ==
LOC: EDBD 18:29 → EMR 19:30 → EDBEDREQ 19:56 → UNDOADMIN 20:10 → 3E 20:10 → EMR 22:50 → UNDOADMIN 10-10 02:05 → 3E 10-10 02:05
PROC: 0DQ70ZZ Repair Stomach, Pylorus, Open Approach (ICD-10-PCS; principal; 2016-10-10)
DX: K25.5 Chronic or unspecified gastric ulcer with perforation (principal); I10 Essential (primary) hypertension; Z72.0 Tobacco use; K57.90 Diverticulosis of intestine, part unspecified, without perforation or abscess without bleeding; K44.9 Diaphragmatic hernia without obstruction or gangrene; D72.829 Elevated white blood cell count, unspecified; K21.9 Gastro-esophageal reflux disease without esophagitis
CPT/HCPCS: 36415; 74177; 80048; 80053; 82550; 82553; 83690; 84484; 85007; 85025; 86677; 87070; 87075; 87205; 93005; 94003; 94150; J2250; J2405; J2710